=== PATIENT | male | born 1965 | race Caucasian/White ===

== ENCOUNTER 2018-03-11 16:26 | Emergency (ER) | payer OTHER ==
--- NOTE | 2018-03-11 17:16 | RAD REPORT ---
EXAM DESCRIPTION: CT - Abdomen Pelvis Wo Contrast - 03/11/2018 5:07 pm CLINICAL HISTORY: Abdominal pain lower abdominal pain COMPARISON: None TECHNIQUE: Computed axial tomography of the abdomen and pelvis was obtained. IV and oral contrast we re not requested. All CT scans are performed using dose optimization technique as appropriate and may include automated exposure control or mA/KV adjustment according to patient size. FINDINGS: The evaluation of solid organs, vessels and bowel is limited secondary to the lack of con trast administration. The liver, spleen, pancreas, adrenals and kidneys appear grossly normal. A diverticulum stems from the proximal sigmoid colon. Mild to moderate stranding is present within th e adjacent fat and thickening of the wall. Free air is not noted. An abscess is not seen. A small ascencion unt of ascites is present within the pelvis. . IMPRESSION: Mild to moderate sigmoid diverticulitis
[2018-03-11] MEDS ORDERED: KETOROLAC 30 MG/ML INJ ONE (18:13)
[2018-03-11] MEDS ORDERED: METRONIDAZOLE 500mg IVPB 500 MG/100 ML BAG IV ONE (18:13)
[2018-03-11] MEDS ORDERED: Levofloxacin500mg IV 500 MG/100 ML BAG IV ONE (18:13)
--- NOTE | 2018-03-11 18:15 | RAD REPORT ---
EXAM DESCRIPTION: US - Scrotum Testicles - 03/11/2018 6:06 pm CLINICAL HISTORY: Left-sided pain. COMPARISON: None. FINDINGS: The right testicle 4.8 x 3.2 x 2.6 cm. No intratesticular masses or evidence of testicular torsion. The left testicle 4.9 x 3.2 x 2.2 cm. No intratesticular masses or evidence of testicular torsion. Both epididymides are normal in size and appearance. Mild fluid is seen in both scrotal sacs. Small left-sided varicocele noted slightly increased with Valsalva maneuver. IMPRESSION: Small left-sided varicocele. No intratesticular mass or evidence of testicular torsion.
[2018-03-11 18:20] LABS: Absolute Lymphocytes (CBC) 1.4 K/uL (0.7-4.9); Absolute Monocytes 0.7 K/uL (0.1-1.3); Absolute Neutrophil 7.5 K/uL (1.8-8.0); Basophils % 0.2 % (0-1.3); Eosinophils % 1.8 % (0-4.4); Hematocrit 43.8 % (39.6-49.0); Lymphocytes % 13.8 % (15.3-44.8); MCH 32.3 pg (27.0-35.0); MCV 92.9 fL (80-100); MPV 8.2 fL (7.6-11.3); Monocytes % 7.3 % (3.3-12.3); RBC Red Blood Cell Count 4.72 M/uL (4.33-5.43)
[2018-03-11 18:29] LABS: Urine Blood NEGATIVE (NEG); Urine Glucose NEGATIVE (NEG); Urine Protein NEGATIVE (NEG); Urine Specific Gravity 1.005 (1.005-1.030); Urine pH 5.5 (5.0-7.0)
[2018-03-11 18:29] LABS: Bicarbonate 26 mEq/L (21-31); Glucose Level 127 mg/dL (65-120); Potassium 3.8 mEq/L (3.6-5.0); Sodium Level 133 mEq/L (135-145)
[2018-03-11 18:35] LABS: ALT/SGPT 21 IU/L (10-60); AST/SGOT 19 IU/L (10-42); Albumin 4.4 g/dL (3.2-5.5); Alkaline Phosphatase 83 IU/L (42-121); BUN Blood Urea Nitrogen 7 mg/dL (6-20); Bilirubin Direct 0.1 mg/dL (0-0.2); Bilirubin Total 0.8 mg/dL (0.3-1.2)
[2018-03-11 18:39] LABS: Urine Bacteria NONE SEEN /HPF (NONE SEEN); Urine RBC NONE SEEN /HPF (NONE SEEN)
[2018-03-11 18:40] LABS: Urine Culture Reflex Order NOT NEEDED
--- NOTE | 2018-03-11 18:40 | EDPHYS ---
Physician Documentation [facility] Name: Conner Bunn Age: 53 yrs Sex: Male : 1965 Arrival Date: 03/11/2018 Time: 16:29 Bed 14 Private MD: Markel Sommers ED Physician Pedro Spencer HPI: 03/11 18:31 This 53 yrs old Male presents to ER via Ambulatory with complaints of wa Testicular Pain. 18:31 The patient presents with scrotal pain, of the left side, tenderness, that is moderate, wa of the left inguinal area. Onset: The symptoms/episode began/occurred 3 day(s) ago. Modifying factors: The symptoms are alleviated by nothing, the symptoms are aggravated by nothing. Associated signs and symptoms: Pertinent positives: abdominal pain, Pertinent negatives: diarrhea, dysuria, fever. Severity of symptoms: At their worst the symptoms were moderate, in the emergency department the symptoms are unchanged. The patient has not experienced similar symptoms in the past. The patient has not recently seen a physician. Historical: - Allergies: 16:34 PENICILLINS; aa5 16:34 karamycin; aa5 - PMHx: 16:34 Diabetes - NIDDM; Hyperlipidemia; Hypertension; aa5 - Immunization history:: Adult Immunizations unknown. - Social history:: Smoking status: Patient/guardian denies using tobacco. - Family history:: not pertinent. - Hospitalizations: : No recent hospitalization is reported. ROS: 18:32 Constitutional: Negative for fever, chills, and weight loss, Eyes: Negative for injury, wa pain, redness, and discharge, ENT: Negative for injury, pain, and discharge, Neck: Negative for injury, pain, and swelling, Cardiovascular: Negative for chest pain, palpitations, and edema, Respiratory: Negative for shortness of breath, cough, wheezing, and pleuritic chest pain, Back: Negative for injury and pain, MS/Extremity: Negative for injury and deformity, Skin: Negative for injury, rash, and discoloration, Neuro: Negative for headache, weakness, numbness, tingling, and seizure. 18:32 Abdomen/GI: Positive for abdominal pain, of the left lower quadrant. 18:32 : Positive for testicular pain of the left. 18:32 All other systems are negative. Exam: 18:32 Constitutional: This is a well developed, well nourished patient who is awake, alert, wa and in no acute distress. Head/Face: Normocephalic, atraumatic. Eyes: Pupils equal round and reactive to light, extra-ocular motions intact. Lids and lashes normal. Conjunctiva and sclera are non-icteric and not injected. Cornea within normal limits. Periorbital areas with no swelling, redness, or edema. ENT: Nares patent. No nasal discharge, no septal abnormalities noted. Tympanic membranes are normal and external auditory canals are clear. Oropharynx with no redness, swelling, or masses, exudates, or evidence of obstruction, uvula midline. Mucous membranes moist. Neck: Trachea midline, no thyromegaly or masses palpated, and no cervical lymphadenopathy. Supple, full range of motion without nuchal rigidity, or vertebral point tenderness. No Meningismus. Chest/axilla: Normal chest wall appearance and motion. Nontender with no deformity. No lesions are appreciated. Cardiovascular: Regular rate and rhythm with a normal S1 and S2. No gallops, murmurs, or rubs. Normal PMI, no JVD. No pulse deficits. Respiratory: Lungs have equal breath sounds bilaterally, clear to auscultation and percussion. No rales, rhonchi or wheezes noted. No increased work of breathing, no retractions or nasal flaring. Back: No spinal tenderness. No costovertebral tenderness. Full range of motion. Skin: Warm, dry with normal turgor. Normal color with no rashes, no lesions, and no evidence of cellulitis. MS/ Extremity: Pulses equal, no cyanosis. Neurovascular intact. Full, normal range of motion. Neuro: Awake and alert, GCS 15, oriented to person, place, time, and situation. Cranial nerves II-XII grossly intact. Motor strength 5/5 in all extremities. Sensory grossly intact. Cerebellar exam normal. Normal gait. Psych: Awake, alert, with orientation to person, place and time. Behavior, mood, and affect are within normal limits. 18:32 Abdomen/GI: Inspection: abdomen appears normal, Bowel sounds: normal, in all quadrants, Palpation: soft, in all quadrants, mild abdominal tenderness, in the left lower quadrant. 18:32 : CVA tenderness, is absent, Male external genitalia: normal, non-tender testicle. no swelling. no redness. nml cremasteric reflex bilaterally. Vital Signs: 16:34 BP 155 / 84; Pulse 94; Resp 16 S; Temp 98.3(TE); Pulse Ox 99% on R/A; aa5 19:45 BP 142 / 84; Pulse 76; Resp 16; Temp 98.0(O); Pulse Ox 97% on R/A; Pain 0/10; bs1 MDM: 16:[address] 18:35 Differential diagnosis: nonspecific abdominal pain, UTI, prostatitis, urethritis. Data ct reviewed: vital signs, nurses notes, lab test result(s), radiologic studies. Test interpretation: by ED physician or midlevel provider: scrotal US: mild varicocle. CT abd/pelvis: mild to moderate diverticulitis. . Response to treatment: the patient's symptoms have mildly improved after treatment. Special discussion: abx given in ED. will d/c with abx. f/u with GI. 18:44 Test interpretation: by ED physician or midlevel provider: labs noted wnl. ct 03/11 16:48 Order name: Basic Metabolic Panel; Complete Time: 18:43 ct 03/11 16:48 Order name: CBC with Diff; Complete Time: 18:43 ct 03/11 16:48 Order name: Hepatic Function; Complete Time: 18:43 ct 03/11 16:48 Order name: Urine Microscopic Only; Complete Time: 18:43 ct 03/11 16:49 Order name: US Scrotum Testicles; Complete Time: 18:22 ct 03/11 18:26 Order name: Urine Dipstick--Ancillary (enter results) 03/11 16:48 Order name: IV Saline Lock; Complete Time: 18:15 ct 03/11 16:48 Order name: Labs collected and sent; Complete Time: 19:34 ct 03/11 16:50 Order name: CT Abd/Pelvis - Without Cont; Complete Time: 18:10 ct Administered Medications: 18:30 Drug: Flagyl 500 mg Volume: 100 ml; Route: IVPB; Rate: 200 ml/hr; Infused Over: 30 ph mins; Site: right forearm; 19:00 Follow up: Response: No adverse reaction; IV Status: Completed infusion ph 19:34 Follow up: IV Status: Completed infusion bs1 18:31 Drug: TORadol 30 mg Route: IVP; Site: right forearm; ph 19:34 Follow up: Response: No adverse reaction bs1 18:36 Drug: LevaQUIN 500 mg Volume: 100 ml; Route: IVPB; Infused Over: 60 mins; Site: right ph forearm; 19:35 Follow up: IV Status: Completed infusion bs1 Disposition: 03/11/18 18:39 Discharged to Home. Impression: acute diverticulitis. - Condition is Stable. - Discharge Instructions: Diverticulitis, Diverticulitis, [id number]. - Prescriptions for Flagyl 500 mg Oral Tablet - take 1 tablet by ORAL route every 12 hours for 7 days; 14 tablet. Ibuprofen 600 mg Oral Tablet - take 1 tablet by ORAL route every 6 hours As needed take with food; 30 tablet. Zofran 4 mg Oral Tablet - take 1 tablet by ORAL route every 12 hours As needed; 20 tablet. Cipro 500 mg Oral Tablet - take 1 tablet by ORAL route every 12 hours for 7 days; 14 tablet. - Medication Reconciliation Form, Thank You Letter, Antibiotic Education, Prescription Opioid Use form. - Follow up: Pedro Ma MD; When: 2 - 3 days; Reason: Recheck today's complaints. - Problem is new. - Symptoms have improved. Signatures: Dispatcher [employer] EDMS Heike Marino RN RN 5 Jayde Mckeon RN RN [facility] ct Michelle Sheppard RN RN bs1 Corrections: (The following items were deleted from the chart) 19:47 18:39 03/11/2018 18:39 Discharged to Home. Impression: acute diverticulitis. Condition bs1 is Stable. Discharge Instructions: Diverticulitis, [id number], Diverticulitis. Forms are Medication Reconciliation Form, Thank You Letter, Antibiotic Education, Prescription Opioid Use. Follow up: Pedro Ma; When: 2 - 3 days; Reason: Recheck today's complaints. Problem is new. Symptoms have improved. juliane
--- NOTE | 2018-03-11 18:40 | ER ---
Nurse's Notes [facility] Name: Conner Bunn Age: 53 yrs Sex: Male : 1965 Arrival Date: 03/11/2018 Time: 16:29 Bed 14 Private MD: Markel Sommers Diagnosis: acute diverticulitis Presentation: 03/11 16:30 Presenting complaint: Patient states: left testicular pain x 3 days ago. Transition of aa5 care: patient was not received from another setting of care. Onset of symptoms was March 2018. Initial Sepsis Screen: Does the patient meet any 2 criteria? No. Patient's initial sepsis screen is negative. Does the patient have a suspected source of infection? No. Patient's initial sepsis screen is negative. Care prior to arrival: None. 16:30 Method Of Arrival: Ambulatory aa5 16:30 Acuity: WEI 3 aa5 Historical: - Allergies: 16:34 PENICILLINS; aa5 16:34 karamycin; aa5 - PMHx: 16:34 Diabetes - NIDDM; Hyperlipidemia; Hypertension; aa5 - Immunization history:: Adult Immunizations unknown. - Social history:: Smoking status: Patient/guardian denies using tobacco. - Family history:: not pertinent. - Hospitalizations: : No recent hospitalization is reported. Screenin:57 Abuse screen: Denies threats or abuse. Denies injuries from another. Nutritional ph screening: No deficits noted. Tuberculosis screening: No symptoms or risk factors identified. Fall Risk None identified. Assessment: 17:00 General: Appears in no apparent distress. comfortable, slender, well groomed, Behavior ph is calm, cooperative, appropriate for age, Denies fever, feeling ill. Pain: Complains of pain in left testicle. Neuro: Level of Consciousness is awake, alert, obeys commands, Oriented to person, place, time, situation. Cardiovascular: Capillary refill < 3 seconds Patient's skin is warm and dry. Respiratory: Airway is patent Respiratory effort is even, unlabored, Respiratory pattern is regular, symmetrical. GI: Reports diarrhea, Patient currently denies abdominal pain, nausea, vomiting. : Reports pain in left testicle, Denies burning with urination, inability to void. Derm: Skin is intact, is healthy with good turgor, Skin is pink, warm \T\ dry. Musculoskeletal: Circulation, motion, and sensation intact. Range of motion: intact in all extremities. 17:50 Reassessment: Patient appears in no apparent distress at this time. Patient and/or ph family updated on plan of care and expected duration. Pain level reassessed. Patient is alert, oriented x 3, equal unlabored respirations, skin warm/dry/pink. US at bedside. 19:07 Reassessment: Patient appears in no apparent distress at this time. Patient and/or ph family updated on plan of care and expected duration. Pain level reassessed. Patient is alert, oriented x 3, equal unlabored respirations, skin warm/dry/pink. Pt resting quietly, awaiting completion of IV antibiotics before discharge. 19:45 Reassessment: Patient appears in no apparent distress at this time. No changes from bs1 previously documented assessment. Patient and/or family updated on plan of care and expected duration. Pain level reassessed. Patient is alert, oriented x 3, equal unlabored respirations, skin warm/dry/pink. Patient finished IV levaquin, Dc papers given. No pain noted at this time. Vital Signs: 16:34 BP 155 / 84; Pulse 94; Resp 16 S; Temp 98.3(TE); Pulse Ox 99% on R/A; aa5 19:45 BP 142 / 84; Pulse 76; Resp 16; Temp 98.0(O); Pulse Ox 97% on R/A; Pain 0/10; bs1 ED Course: 16:29 Patient arrived in ED. as 16:30 Markel Sommers MD is Private Physician. as 16:30 Arm band placed on. aa5 16:33 Triage completed. aa5 16:38 Pedro Spencer MD is Attending Physician. wa 16:45 Jayde Mckeon, DAQUAN is Primary Nurse. ph 16:[address] vr 17:06 CT completed. Patient tolerated procedure well. Patient moved back from CT. nj 17:06 CT Abd/Pelvis - Without Cont In Process Unspecified. EDMS 17:57 Patient has correct armband on for positive identification. Placed in gown. Bed in low ph position. Call light in reach. Side rails up X 1. Pulse ox on. NIBP on. Warm blanket given. 18:02 Ultrasound completed. Patient tolerated well. sg3 18:06 US Scrotum Testicles In Process Unspecified. EDMS 18:13 Initial lab(s) drawn, by ky, sent to lab. Inserted saline lock: 22 gauge in right 5 forearm, using aseptic technique. Blood collected. 18:14 Basic Metabolic Panel Sent. [facility] 18:14 CBC with Diff [address]. [facility] 18:[address] [facility] 18:38 Pedro Ma MD is Referral Physician. pr 19:09 No provider procedures requiring assistance completed. ph 19:44 IV discontinued, bleeding controlled, No redness/swelling at site. Pressure dressing bs1 applied. Administered Medications: 18:30 Drug: Flagyl 500 mg Volume: 100 ml; Route: IVPB; Rate: 200 ml/hr; Infused Over: 30 ph mins; Site: right forearm; 19:00 Follow up: Response: No adverse reaction; IV Status: Completed infusion ph 19:34 Follow up: IV Status: Completed infusion bs1 18:31 Drug: TORadol 30 mg Route: IVP; Site: right forearm; ph 19:34 Follow up: Response: No adverse reaction bs1 18:36 Drug: LevaQUIN 500 mg Volume: 100 ml; Route: IVPB; Infused Over: 60 mins; Site: right ph forearm; 19:35 Follow up: IV Status: Completed infusion bs1 Outcome: 18:39 Discharge ordered by . pr 19:43 Discharged to home ambulatory. bs1 19:43 Condition: stable 19:43 Discharge instructions given to patient, Instructed on discharge instructions, follow up and referral plans. medication usage, Demonstrated understanding of instructions, follow-up care, medications, Prescriptions given X 4. 19:47 Patient left the ED. bs1 Signatures: Dispatcher [employer] Lorraine Melendrez Audri, RN RN 5 Bina Rodriguez Patricia, RN RN Jose, Amy Webster [facility] Pedro Spencer MD MD wa Godinez, Sarah sg3 Salazar, Brittany, RN RN bs1
== END 2018-03-11 19:47 | disposition home or self-care (01) ==
LOC: ER 16:26
DX: K57.92 Diverticulitis of intestine, part unspecified, without perforation or abscess without bleeding (principal); I10 Essential (primary) hypertension; Z88.0 Allergy status to penicillin
CPT/HCPCS: 36415; 74176; 76870; 80048; 80076; 81003; 81015; 85025; 96365; 96368; 96375; 99284

== ENCOUNTER 2021-12-13 12:28 | Emergency (ER) | payer OTHER ==
--- OUTSIDE RECORDS SUMMARY | 2021-12-13 12:33 | XMS REPORT | Continuity of Care Document ---
:1965 Author Organization [facility] t Address [address] [place] [address] Care Team Providers Name Role Phone Unavailable Unavailable Unavailable Problems Condition Condition Condition Status Onset Resolution Last Treating Co mments Source Name Details Category Date Date Treatment Clinician Date CHEST PAIN Diagnosis Active 2016-08-10 Memoria 08-06 07:48:00 l CHEST 00:00: Luis PAIN 00 Active 08/06/2016 [place] Cataract Problem Resolve 2021-11-28 Me moria (disorder) d 01:30:05 l Cataract Jeison n (disorder) [facility] [place] Tear of Problem Resolve 2021-11-28 Mem oria meniscus d 01:30:05 l of knee Tear of Jeison n (disorder) meniscus of knee (disorder) Resolved Problem 11/28/2021 [facility] [place] Benign Problem Active 2021-11-28 Memor ia prostatic 01:30:05 l hypertroph Benign Herm kena without prostatic outflow hypertroph obstructio without n outflow (disorder) obstructio n (disorder) Active Problem 11/28/2021 [facility] Diverticul Problem Active 2021-11-28 M emoria itis 01:30:05 l (disorder) Jeison n Diverticul itis (disorder) Active Problem 11/28/2021 [facility] History of Problem Active 2021-11-28 M emoria - 01:30:05 l Malignant History Herm kena melanoma of - (context-d Malignant ependent melanoma category) (context-d ependent category) Active Problem 11/28/2021 [facility] Hearing Problem Active 2021-11-28 Sebas luis loss 01:30:05 l (finding) Hearing Herm kena loss (finding) Active Problem 11/28/2021 [facility] History of Problem Active 2021-11-28 M emoria malignant 01:30:05 l lymphoma History Aaliyah nn (situation of ) malignant lymphoma (situation ) Active Problem 11/28/2021 [facility] Hyperlipid Problem Active 2021-11-28 M emoria emia 01:30:05 l (disorder) Jeison n Hyperlipid emia (disorder) Active Problem 11/28/2021 [facility] Hypertensi Problem Active 2021-11-28 M emoria ve 01:30:05 l disorder, Luis systemic Hypertensi arterial ve (disorder) disorder, systemic arterial (disorder) Active Problem 11/28/2021 [facility], [place] Overweight Problem Active 2020-10-21 M emoria in 00:49:49 l adulthood Luis with body Overweight mass index in of 25 or adulthood more but with body less than mass index 30 of 25 or (finding) more but less than 30 (finding) Active Problem 10/21/2020 [facility] Diabetes Problem Active 2021-11-28 Mem oria mellitus 01:30:05 l type 2 Diabetes Jeison n (disorder) mellitus type 2 (disorder) Active Problem 11/28/2021 [facility] Finding of Problem Active 2020-02-05 M emoria body mass 02:50:50 l index Finding [place] (finding) of body mass index (finding) Active Problem 02/05/2020 [facility] Erectile Problem Active 2021-11-28 Mem oria dysfunctio 01:30:05 l n Erectile Jeison n dysfunctio n Active Problem 11/28/2021 [facility] Fatigue Problem Active 2021-11-28 Sebas luis (finding) 01:30:05 l Fatigue Luis (finding) Active Problem 11/28/2021 [facility] History of Problem Active 2021-11-28 M emoria SARS-CoV-2 01:30:05 l History [place] of SARS-CoV-2 Active Problem 11/28/2021 [facility] Overweight Problem Active 2021-11-28 M emoria (finding) 01:30:05 l [place] Overweight (finding) Active Problem 11/28/2021 [facility] Diabetic Problem Active 2021-11-28 Mem oria retinopath 01:30:05 l y Diabetic Jeison n (disorder) retinopath y (disorder) Active Problem 11/28/2021 [facility] Disease Problem Active 2020-10-21 Sebas luis caused by 00:49:49 l 2019-nCoV Disease Herm kena caused by 2018-nCoV Active Problem 10/21/2020 [facility] Type 2 Problem 2021-11-28 2021-11-28 M emoria diabetes 11-25 01:30:05 01:30:05 l mellitus Type 2 22:07: Jeison peres without diabetes 00 complicati mellitus ons without complicati ons 11/25/2021 11/28/2021 [facility] Enlarged Problem 2021-11-28 2021-11-28 Memoria prostate 11-25 01:30:05 01:30:05 l without Enlarged 22:07: Aaliyah nn lower prostate 00 urinary without tract lower symptoms urinary tract symptoms 11/28/2021 [facility] Essential Problem 2021-11-28 2021-11-28 Memoria (primary) 11-25 01:30:05 01:30:05 l hypertensi 22:07: Jeison perse on Essential 00 (primary) hypertensi on 11/25/2021 11/28/2021 [facility] Hyperlipid Problem 2021-11-28 2021-11-28 Memoria emia, 11-25 01:30:05 01:30:05 l unspecifie 22:07: Jeison peres d Hyperlipid 00 emia, unspecifie d 11/25/2021 11/28/2021 [facility] Type 2 Problem 2021-11-28 2021-11-28 M emoria diabetes 11-25 01:30:05 01:30:05 l mellitus Type 2 22:06: Jeison peres with diabetes 00 unspecifie mellitus d diabetic with 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 Clinician (SIG) Name Name pneumococca No 0.5 mL, Mem oria l capsular 1-18 Route: IM, l polysacchar 22:19: ONCE, Aaliyah nn alvaro type 1 00 (PNEUMOVAX vaccine / 23), pneumococca Start l capsular date: polysacchar 11/25/21 alvaro type 16:19:00 10A vaccine [employer], Stop / date: pneumococca 11/25/21 l capsular 16:19:00 polysacchar [employer] alvaro type 11A vaccine / pneumococca l capsular polysacchar alvaro type 12F vaccine / pneumococca l capsular polysacchar pravastatin Yes = 1 tab, Me moria 40 mg oral 1-18 PO, l tablet 22:16: Bedtime, # Aaliyah nn 00 90 tab, 3 Refill(s), Pharmacy: [facility], 167.64, cm, 06/13/21 15:05:00 CDT, Height, 76.477, kg, 06/13/21 15:05:00 CDT, Weight tamsulosin Yes 0.4 mg = 1 M emoria 0.4 mg oral 1-18 cap, PO, l capsule 22:16: BID, # 180 Herm kena 00 cap, 3 Refill(s), Pharmacy: [facility], 167.64, cm, 06/13/21 15:05:00 CDT, Height, 76.477, kg, 06/13/21 15:05:00 CDT, Weight lisinopril Yes = 1 tab, Mem oria 10 mg oral 1-18 PO, Daily, l tablet 22:15: # 90 tab, Jeison n 00 3 Refill(s), Pharmacy: [facility], 167.64, cm, 06/13/21 15:05:00 CDT, Height, 76.477, kg, 06/13/21 15:05:00 CDT, Weight Metformin 2021-0 Yes = 1 tab, Sebas luis hydrochlori 1-18 PO, l de 500 MG 22:15: BID-Before He rmann Oral Tablet 00 Meals, # 180 tab, 3 Refill(s), Pharmacy: [facility], 167.64, cm, 06/13/21 15:05:00 CDT, Height, 76.477, kg, 06/13/21 15:05:00 CDT, Weight pravastatin No = 1 tab, Me moria 40 mg oral 1-06 PO, l tablet 19:19: Bedtime, # Aaliyah nn 00 90 tab, 3 Refill(s), Pharmacy: [facility], 167.64, cm, 06/13/21 15:05:00 CDT, Height, 76.477, kg, 06/13/21 15:05:00 CDT, Weight lisinopril No = 1 tab, Mem oria 10 mg oral 1-06 PO, Daily, l tablet 19:19: # 90 tab, Jeison n 00 3 Refill(s), Pharmacy: [facility], 167.64, cm, 06/13/21 15:05:00 CDT, Height, 76.477, kg, 06/13/21 15:05:00 CDT, Weight FreeStyle 2020-11 Yes 1 ea, Memoria Cinthia 0-22 MISC, l [place] 21:46: ONCE, Last Aaliyah HBA1c: 6.9, # 1 ea, Not insulin dependent, Does not use insulin pump, Last DM eval date 11/28/20, 0 Refill(s), Pharmacy: [facility], 167.64, cm, 06/13/21 15:05:00 CDT, Height, 76.477, kg, 06/13/21 15:05:00 CDT... FreeStyle 2020-11 Yes 3 ea, Memoria Cinthia 0-22 MISC, l Sensor 21:46: Q14D, Last Aaliyah HBA1c: 6.9, # 3 ea, Not insulin dependent, Does not use insulin pump, Last DM eval date 11/28/20, 1 Refill(s), Pharmacy: [facility], 167.64, cm, 06/13/21 15:05:00 CDT, Height, 76.477, kg, 06/13/21 15:05:00 CDT... lisinopril Yes = 1 tab, Mem oria 10 mg oral 7-16 PO, Daily, l tablet 20:40: # 90 tab, Jeison n 00 1 Refill(s), Pharmacy: [facility], 167.64, cm, 05/23/21 15:10:00 CDT, Height, 77.727, kg, 05/23/21 15:10:00 CDT, Weight tamsulosin Yes 0.4 mg = 1 M emoria 0.4 mg oral 7-16 cap, PO, l capsule 20:40: BID, # 60 Aaliyah nn 00 cap, 0 Refill(s), Pharmacy: [facility], 167.64, cm, 05/23/21 15:10:00 CDT, Height, 77.727, kg, 05/23/21 15:10:00 CDT, Weight Metformin Yes = 1 tab, Sebas luis hydrochlori 7-16 PO, l de 500 MG 20:40: BID-Before He rmann Oral Tablet 00 Meals, # 180 tab, 1 Refill(s), Pharmacy: [facility], 167.64, cm, 05/23/21 15:10:00 CDT, Height, 77.727, kg, 05/23/21 15:10:00 CDT, Weight pravastatin Yes = 1 tab, Me moria 40 mg oral 7-16 PO, l tablet 20:40: Bedtime, # Aaliyha nn 00 90 tab, 1 Refill(s), Pharmacy: [facility], 167.64, cm, 05/23/21 15:10:00 CDT, Height, 77.727, kg, 05/23/21 15:10:00 CDT, Weight lisinopril No = 1 tab, Mem oria 10 mg oral 7-16 PO, Daily, l tablet 20:37: # 90 tab, Jeison n 00 1 Refill(s), Pharmacy: [id number], 167.64, cm, 05/23/21 15:10:00 CDT, Height, 77.727, kg, 05/23/21 15:10:00 CDT, Weight Metformin 0 No = 1 tab, Sebas luis hydrochlori 7-16 PO, l de 500 MG 20:37: BID-Before He rmann Oral Tablet 00 Meals, # 180 tab, 1 Refill(s), Pharmacy: [facility] #[id number], 167.64, cm, 05/23/21 15:10:00 CDT, Height, 77.727, kg, 05/23/21 15:10:00 CDT, Weight pravastatin 0 No = 1 tab, Me moria 40 mg oral 7-16 PO, l tablet 20:37: Bedtime, # Aaliyah nn 00 90 tab, 1 Refill(s), Pharmacy: [facility] #[id number], 167.64, cm, 05/23/21 15:10:00 CDT, Height, 77.727, kg, 05/23/21 15:10:00 CDT, Weight tamsulosin 0 No 0.4 mg = 1 M emoria 0.4 mg oral 7-16 cap, PO, l capsule 20:37: BID, # 60 Aaliyah nn 00 cap, 0 Refill(s), Pharmacy: [facility] #[id number], 167.64, cm, 05/23/21 15:10:00 CDT, Height, 77.727, kg, 05/23/21 15:10:00 CDT, Weight FreeStyle 2020-0 Yes 1 ea, Memoria Cinthia - MISC, l [place] 16:09: ONCE, Last Aaliyah HBA1c: 6.9, # 1 ea, Not insulin dependent, Does not use insulin pump, Last DM eval date 11/28/20, 0 Refill(s), Pharmacy: [email or web address], 167.64, cm, 11/28/20 9:09:00 [employer], Height, 76.818, kg, 11/28/20 9:09:00 [employer],... FreeStyle 2020-0 Yes 3 ea, Memoria Cinthia - MISC, l Sensor 16:09: Q14D, Last Aaliyah HBA1c: 6.9, # 3 ea, Not insulin dependent, Does not use insulin pump, Last DM eval date 11/28/20, 1 Refill(s), Pharmacy: [email or web address], 167.64, cm, 11/28/20 9:09:00 [employer], Height, 76.818, kg, 11/28/20 9:09:00 [employer],... lisinopril Yes = 1 tab, Mem oria 10 mg oral 1-21 PO, Daily, l tablet 15:40: # 90 tab, Jeison n 00 1 Refill(s), Pharmacy: [facility], 167.64, cm, 11/28/20 9:09:00 [employer], Height, 76.818, kg, 11/28/20 9:09:00 [employer], Weight Metformin Yes = 1 tab, Sebas luis hydrochlori 1-21 PO, l de 500 MG 15:40: BID-Before He rmann Oral Tablet 00 Meals, # 180 tab, 1 Refill(s), Pharmacy: [facility], 167.64, cm, 11/28/20 9:09:00 [employer], Height, 76.818, kg, 11/28/20 9:09:00 [employer], Weight pravastatin Yes = 1 tab, Me moria 40 mg oral -21 PO, l tablet 15:40: Bedtime, # Aaliyah nn 00 90 tab, 1 Refill(s), Pharmacy: [facility], 167.64, cm, 11/28/20 9:09:00 [employer], Height, 76.818, kg, 11/28/20 9:09:00 [employer], Weight tamsulosin Yes 0.4 mg = 1 M emoria 0.4 mg oral -21 cap, PO, l capsule 15:11: BID, 0 [place] 00 Refill(s) levalbutero 2019-11 Yes 0.63 mg = M emoria l 0.63 mg/3 2-10 3 mL, NEB, l mL 19:20: Q6H, PRN [place] inhalation 00 as need solution for shortness of breath, # 120 ea, 0 Refill(s), Pharmacy: [facility][id number], 167.64, cm, 03/07/20 8:55:00 CDT, Height, 72.182, kg, 03/07/20 8:55:00 CDT, Weight Codeine 2019-11 Yes 5 mL, PO, Memor ia Phosphate 2 2-10 Q4H, PRN l MG/ML / 19:20: cough, may Herm kena Guaifenesin 00 cause 20 MG/ML sleepiness Oral , X 8 day, Solution # 240 mL, [Cheratussi 0 n] Refill(s), Pharmacy: [facility] #[id number], 167.64, cm, 03/07/20 8:55:00 CDT, Height, 72.182, kg, 03/07/20 8:55:00 CDT, Weight lisinopril 2019-11 Yes 10 mg = 1 Me moria 10 mg oral 2-07 tab, PO, l tablet 21:14: Daily, # Luis 00 30 tab, 0 Refill(s), Pharmacy: [facility] #[id number], this replaces the Byst[facility], 167.64, cm, 03/07/20 8:55:00 CDT, Height, 72.182, kg, 03/07/20 8:55:00 CDT, Weight pravastatin 2019-11 Yes 40 mg = 1 M emoria 40 mg oral 2-07 tab, PO, l tablet 21:14: Bedtime, # Aaliyah nn 00 30 tab, 0 Refill(s), Pharmacy: [facility] #[id number], 167.64, cm, 03/07/20 8:55:00 CDT, Height, 72.182, kg, 03/07/20 8:55:00 CDT, Weight Metformin 2019-11 Yes 500 mg = 1 Me moria hydrochlori 2-07 tab, PO, l de 500 MG 21:14: BID-Before He rmann Oral Tablet 00 Meals, # 60 tab, 0 Refill(s), Pharmacy: [facility] #[id number], 167.64, cm, 03/07/20 8:55:00 CDT, Height, 72.182, kg, 03/07/20 8:55:00 CDT, Weight {6 2019-11 Yes See Memoria (Azithromyc 2-07 Instructio l in 250 MG 21:14: ns, Take 2 He rmann Oral Tablet 00 tablets by [Zithromax] mouth the ) } Pack first day [Z-PAKS] then 1 tablet by mouth days 2-5., X 5 day, # 6 tab, 0 Refill(s), Pharmacy: [facility] #[id number], 167.64, cm, 03/07/20 8:55:00 CDT, Height, 72.182, kg, 03/07/20 8:55:00 CDT, Weight benzonatate 2019-1 Yes 100 mg = 1 Memoria 100 mg oral 2-07 cap, PO, l capsule 21:14: TID, do not crush or chew, X 10 day, # 30 cap, 0 Refill(s), Pharmacy: [facility] #[id number], 167.64, cm, 03/07/20 8:55:00 CDT, Height, 72.182, kg, 03/07/20 8:55:00 CDT, Weight Dexcom G6 2019-0 Yes 1 ea, Memoria Transmitter 6-18 MISC, l Kit 19:08: ONCE, Last HBA1c: 6.9, # 3 ea, Not insulin dependent, Does not use insulin pump, Last DM eval date 03/07/20, 1 Refill(s), Pharmacy: [facility], 167.64, cm, 03/07/20 8:55:00 CDT, Height, 72.182, kg, 03/07/20 8:55:00 CDT,... Dexcom G6 2019-0 Yes 1 ea, Memoria Sensor Kit 6-18 MISC, l 19:08: ONCE, Last HBA1c: 6.9, # 9 ea, Not insulin dependent, Does not use insulin pump, Last DM eval date 03/07/20, 1 Refill(s), Pharmacy: [email or web address], 167.64, cm, 03/07/20 8:55:00 CDT, Height, 72.182, kg, 03/07/20 8:55:00 CDT,... pravastatin 2020-0 Yes 40 mg = 1 M emoria 40 mg oral 5-05 tab, PO, l tablet 14:00: Bedtime, # Aaliyah nn 00 90 tab, 1 Refill(s), Pharmacy: [facility] Dexcom G6 2020-0 Yes 1 ea, Memoria Training Manager 4-30 MISC, l Kit 14:22: ONCE, PRN Refill "Once a Year", Last HBA1c: due, # 3 ea, Not insulin dependent, Does not use insulin pump, Last DM eval date 02/26/20, 0 Refill(s), Pharmacy: [facility] #[id number] Dexcom G6 2020-0 Yes 1 ea, Memoria Sensor Kit 4-30 MISC, l 14:22: ONCE, PRN [place] 00 Refill "Every 30 Days" Use as directed, Last HBA1c: due, # 3 ea, Not insulin dependent, Does not use insulin pump, Last DM eval date 02/26/20, 0 Refill(s), Pharmacy: [facility] #[id number] Dexcom G6 2020-0 Yes 1 ea, Memoria Transmitter 4-30 MISC, l Kit 14:22: ONCE, PRN Luis 00 Refill "Every 3 Months", Last HBA1c: due, # 3 ea, Not insulin dependent, Does not use insulin pump, Last DM eval date 02/26/20, 0 Refill(s), Pharmacy: [facility] #[id number] Metformin 2020-0 Yes 500 mg = 1 Me moria hydrochlori 4-30 tab, PO, l de 500 MG 14:22: BID-Before He rmann Oral Tablet 00 Meals, # 180 tab, 0 Refill(s), Pharmacy: [facility] #[id number] nebivolol 2020-0 Yes 10 mg = 1 Mem oria 10 MG Oral 4-30 tab, PO, l Tablet 14:22: Daily, # [place] [Bystolic] 00 90 tab, 0 Refill(s), Pharmacy: [facility] #[id number] Tamsulosin 2020-0 Yes 0.4 mg = 1 M emoria hydrochlori 4-30 cap, PO, l de 0.4 MG 14:22: Daily, # Herm kena Oral 00 90 cap, 0 Capsule Refill(s), [Flomax] Pharmacy: [facility] #[id number] Dexcom G6 2020-0 Yes 1 ea, Memoria Transmitter 3-26 MISC, l Kit 14:47: ONCE, PRN [place] 00 Refill "Every 3 Months", Last HBA1c: due, # 1 ea, Not insulin dependent, Does not use insulin pump, Last DM eval date 02/26/20, 0 Refill(s), Pharmacy: [facility] #[id number] Dexcom G6 2020-0 Yes 1 ea, Memoria Sensor Kit 3- MISC, l 14:47: ONCE, PRN [place] 00 Refill "Every 30 Days" Use as directed, Last HBA1c: due, # 1 ea, Not insulin dependent, Does not use insulin pump, Last DM eval date 02/26/20, 0 Refill(s), Pharmacy: [facility] #[id number] Dexcom G6 Yes 1 ea, Memoria Training Manager 01-31 MISC, l Kit 14:47: ONCE, PRN Luis 00 Refill "Once a Year", Last HBA1c: due, # 1 ea, Not insulin dependent, Does not use insulin pump, Last DM eval date 02/26/20, 0 Refill(s), Pharmacy: [facility] #[id number] Bromphenira Yes 5 mL, PO, M emoria mine 6-10 Q4H, PRN l Maleate 0.4 20:17: cough, X 8 Luis MG/ML / 00 day, # 240 Dextrometho mL, 0 rphan Refill(s), Hydrobromid Pharmacy: e 2 MG/ML / [facility] #[id number] rine Hydrochlori de 6 MG/ML Oral Solution [Bromfed DM] {6 Yes See Memoria (Azithromyc 6-10 Instructio l in 250 MG 20:17: ns, Take 2 He rmann Oral Tablet 00 tablets by [Zithromax] mouth the ) } Pack first day [Z-PAKS] then 1 tablet by mouth days 2-5., X 5 day, # 6 tab, 0 Refill(s), Pharmacy: [facility] #[id number] Lovastatin 2019- Yes PO, 0 Memori a 6-10 Refill(s) l 20:05: Luis 00 Flomax 2015-11 No Notes: Memoria 0- (Same As: l 14:00: Flomax) Luis "Do Not Crush" Bystolic 2015-11 No Notes: Memoria 0-01 (same as: l 14:00: Bystolic) [place] 00 Metformin Yes 500 mg = 1 Me moria hydrochlori 9-30 tab, PO, l de 500 MG 17:10: BID-Before He rmann Oral Tablet 00 Meals, # 60 tab, 0 Refill(s) pantoprazol Yes 40 mg = 1 M emoria e 40 MG 9-30 tab, PO, l Enteric 17:10: Daily, # Jeison n Coated 00 30 tab, 0 Tablet Refill(s) [Protonix] Simvastatin Yes 20 mg = 1 M emoria 20 MG Oral 9-30 tab, PO, l Tablet 16:25: Bedtime, # Aaliyah nn [Zocor] 00 90 tab, 1 Refill(s) Protonix No Notes: Memoria -30 Tablet l 14:00: should not Luis 00 be chewed or crushed. (Same as: Protonix) Aspirin 81 No Notes: Do Me moria MG Enteric 08-07 not crush l Coated 14:00: or chew. Luis Tablet 00 (Same As: Ecotrin) ibuprofen Yes 400 mg = 2 Me moria 200 mg oral -29 tab, PO, l tablet 22:49: Daily, PRN Aaliyah nn 00 Fever, # 120 tab, 0 Refill(s) nebivolol Yes 10 mg = 1 Mem oria 10 MG Oral 29 tab, PO, l Tablet 22:49: Daily, # Luis [Bystolic] 00 90 tab, 1 Refill(s) Tamsulosin Yes 0.4 mg = 1 M emoria hydrochlori 29 cap, PO, l de 0.4 MG 22:49: Daily, # Herm kena Oral 00 90 cap, 0 Capsule Refill(s) [Flomax] Zofran No Notes: Memoria 08-06 (Same as: l 21:40: Zofran) Luis 00 MEDICATION WASTE Product Size: 4 mg Product Wasted: ___ mg Phenergan No Notes: Do Mem oria 08-06 not give l 21:40: IV push. [place] 00 (Same as: Phenergan) Acetaminoph No Notes: Sebas luis en 325 MG / 08-06 (Same as: l Hydrocodone 21:40: Steele Aaliyah nn Bitartrate 00 325/5) Do 5 MG Oral not exceed Tablet 4gm/day of [Steele acetaminop 5/325] hen. Morphine No Notes: Memoria 08-06 (Same l 21:40: as:MORPhin e Sulfate) Labetalol No Notes: Memori a 08-06 (Same as: l 21:40: Normodyne, Trandate) Push over 2 minutes Give bolus over 2-3 minutes. Insulin, No Notes: Memoria Aspart, 08-06 Roll in l Human 21:39: palms of hands gently; Do not shake vigorously . (Same as: NovoLOG) "single patient use only" WASTE: F/P - Black; E - Municipal Trash Bin Stable for 28 days at room temperatur e. Expires in days from ____Date Dextrose No 12.5 gm, Memor ia 50% Syringe 08-06 25 mL, l 21:39: Route: IVP, Drug Form: INJ, Dosing Weight 75, kg, PRN, PRN Blood Glucose Results, Start date: 08/06/16 16:39:00 CDT, Duration: 30 day, Stop date: 09/05/16 16:38:00 CDT Glucagon No 1 mg, Memoria 08-06 Route: IM, l 21:39: Drug form: PDR/INJ, PRN, Dosing Weight 75, kg, PRN Blood Glucose Results, Start date: 08/06/16 16:39:00 CDT, Duration: 30 day, Stop date: 09/05/16 16:38:00 CDT Nitroglycer No Notes: Sebas luis in 08-06 (Same l 16:49: as:Nitroqu ick, Nitrostat) "Do Not Crush" Sublingual tablet Aspirin No Notes: Memoria 08-06 Take with l 15:01: food. Saline No Notes: Memoria Flush 0.9% 08-06 (Same as: l 15:01: BD Posiflush) Immunizations Ordered Immunization Filled Immunization Date Status Commen ts Source Name Name Hx influenza 2021-08-21 Completed [facility] vaccine-unspecified< 00:00:00 Herm kena sup>1</sup> Vital Signs Vital Name Observation Time Observation Value Comments Source Temperature Oral (F) 2021-11-25 21:43:00 98.6 F [facility] [place] Heart Rate 2021-11-25 21:43:00 [facility] Luis Systolic (mm Hg) 2021-11-25 21:43:00 Sebas rial Luis Diastolic (mm Hg) 2021-11-25 21:43:00 Mem orial [place] Systolic (mm Hg) 2021-06-13 20:05:00 Sebas rial [place] Diastolic (mm Hg) 2021-06-13 20:05:00 Mem orial Luis Heart Rate 2021-06-13 20:05:00 [facility] [place] Height 2021-06-13 20:05:00 167.64 cm [facility] Luis Weight 2021-06-13 20:05:00 [facility] Luis BMI Calculated 2021-06-13 20:05:00 Memori al [place] Systolic (mm Hg) 2021-05-23 20:10:00 Sebas rial Luis Diastolic (mm Hg) 2021-05-23 20:10:00 Mem orial Luis Heart Rate 2021-05-23 20:10:00 [facility] Luis Temperature Oral (F) 2021-05-23 20:10:00 98.4 F [facility] [place] Height 2021-05-23 20:10:00 167.64 cm [facility] Luis Weight 2021-05-23 20:10:00 [facility] [place] BMI Calculated 2021-05-23 20:10:00 Memori al [place] Systolic (mm Hg) 2020-11-28 15:09:00 Sebas rial [place] Diastolic (mm Hg) 2020-11-28 15:09:00 Mem orial [place] Heart Rate 2020-11-28 15:09:00 [facility] Luis Respitory Rate 2020-11-28 15:09:00 Memori al [place] Height 2020-11-28 15:09:00 167.64 cm [facility] Luis Weight 2020-11-28 15:09:00 [facility] [place] BMI Calculated 2020-11-28 15:09:00 Memori al [place] Systolic (mm Hg) 2020-03-07 14:29:00 Sebas rial [place] Diastolic (mm Hg) 2020-03-07 14:29:00 Mem orial Luis Systolic (mm Hg) 2020-03-07 13:55:00 Sebas rial [place] Diastolic (mm Hg) 2020-03-07 13:55:00 Mem orial Luis Heart Rate 2020-03-07 13:55:00 [facility] [place] Respitory Rate 2020-03-07 13:55:00 Memori al Luis Temperature Oral (F) 2020-03-07 13:55:00 97.7 F [facility] [place] Height 2020-03-07 13:55:00 167.64 cm [facility] Luis Weight 2020-03-07 13:55:00 [facility] [place] BMI Calculated 2020-03-07 13:55:00 Memori al Luis BMI Calculated 2019-04-17 19:56:00 Memori al Luis Weight 2019-04-17 19:56:00 [facility] Height 2019-04-17 19:56:00 168.91 cm [facility] [place] Heart Rate 2019-04-17 19:56:00 [facility] Temperature Oral (F) 2019-04-17 19:56:00 98.6 F [facility] [place] Systolic (mm Hg) 2019-04-17 19:56:00 Sebas rial [place] Diastolic (mm Hg) 2019-04-17 19:56:00 Mem orial Luis Systolic (mm Hg) 2016-08-07 15:58:00 Sebas rial Luis Diastolic (mm Hg) 2016-08-07 15:58:00 Mem orial [place] Respitory Rate 2016-08-07 15:58:00 Memori al [place] Heart Rate 2016-08-07 15:58:00 [facility] Temperature Oral (F) 2016-08-07 15:58:00 97.5 F [facility] Heart Rate 2016-08-07 12:20:00 [facility] Temperature Oral (F) 2016-08-07 12:20:00 98.0 F [facility] Systolic (mm Hg) 2016-08-07 12:20:00 [facility] [place] Diastolic (mm Hg) 2016-08-07 12:20:00 [facility] Respitory Rate 2016-08-07 12:20:00 [facility] Systolic (mm Hg) 2016-08-07 08:21:00 [facility] [place] Diastolic (mm Hg) 2016-08-07 08:21:00 [facility] Respitory Rate 2016-08-07 08:21:00 [facility] Heart Rate 2016-08-07 08:21:00 [facility] Temperature Oral (F) 2016-08-07 08:21:00 97.8 F [facility] Weight 2016-08-06 19:05:00 [facility] BMI Calculated 2016-08-06 19:05:00 [facility] Height 2016-08-06 19:05:00 175.26 cm [facility] BMI Calculated 2016-08-06 19:02:00 [facility] Weight 2016-08-06 19:02:00 [facility] Height 2016-08-06 19:02:00 165.1 cm [facility] Weight 2016-08-06 14:37:00 [facility] Procedures Procedure Date / Time Performed Performing Clinician [facility] e Diabetic foot examination 2020-11-28 15:40:10 Oh ann Smith Colonoscopy, flexible; 2018-07-01 05:00:00 Deng Smith with biopsy, single or multiple broken nose [facility] meniscal tear [facility] [facility] Encounters Start End Encounter Admission Attending Care Care Encounter Source Date/Time Date/Time Type Type Clinicians Facility Department ID 2022-05-26 2022-05-26 Outpatient MHIE MHIE [id number] [facility] 15:40:00 15:40:00 08 john Smith 2022-05-19 2022-05-19 Outpatient MHIE BLANCAIE [id number] [facility] 07:00:00 07:00:00 09 john Smith 2021-11-28 2021-11-28 Outpatient MHIE MHIE [id number] [facility] 07:00:00 07:00:00 10 john Smith 2021-11-25 2021-11-26 Outpatient [facility]Flavo [facility] 8 [id number] Memoria 21:40:00 05:59:59 r Medicine 06 john PittsBhatti Jeison peres 2021-09-11 2021-09-13 Phone nullFlavo [facility] 8515 [id number] Memoria 13:49:03 04:59:59 Message r Medicine 12 john PittsBhatti Jeison peres 2021-08-29 2021-08-31 Phone nullFlavo [facility] 8515 [id number] Memoria 14:36:07 04:59:59 Message r Medicine 11 l Magy Mchugh n 2021-08-28 2021-08-30 Phone nullFlavo [facility] 8515 [id number] Memoria 20:27:11 04:59:59 Message r Medicine 10 l Magy Mchugh n 2021-07-04 2021-07-05 Between nullFlavo [facility] 8515 [id number] Memoria 13:38:27 13:38:27 Visit r Medicine 14 l Magy Mchugh n 2021-07-03 2021-07-05 Phone nullFlavo [facility] 8515 [id number] Memoria 19:25:00 04:59:59 Message r Medicine 09 l Magy Mchugh n 2021-06-16 2021-06-17 Between nullFlavo [facility] 8515 [id number] Memoria 13:33:46 13:33:46 Visit r Medicine 12 l Bhatticam Mchugh n 2021-06-13 2021-06-14 Outpatient nullFlavo [facility] 8 [id number] [facility] 20:00:00 04:59:59 r Medicine 07 l Magy Mchugh n 2021-05-23 2021-05-24 Outpatient nullFlavo [facility] 8 [id number] [facility] 20:20:00 04:59:59 r Medicine 05 l Magy Mchugh n 2021-05-13 2021-05-15 Phone nullFlavo [facility] 8515 [id number] Memoria 15:26:09 04:59:59 Message r Medicine 08 l Bhatticam Mchugh n 2021-03-26 2021-03-26 Ambulatory nullFlavo [facility] 8 [id number] Memoria 20:20:00 20:20:00 Pre-Reg r Medicine 04 l Bhatticam Mchugh n 2020-12-09 2020-12-11 Phone nullFlavo [facility] 8515 [id number] Memoria 21:06:59 05:59:59 Message r Medicine 07 l Bhatticam Mchugh n 2020-11-28 2020-11-29 Outpatient nullFlavo [facility] 8 [id number] Memoria 15:00:00 05:59:59 r Medicine 03 l Bhatti Jeison n 2020-10-17 2020-10-19 Phone nullFlavo [facility] 8515 [id number] Memoria 15:11:36 05:59:59 Message r Medicine 06 john Mchugh larisa 2020-10-14 2020-10-15 Outpatient nullFlavo [facility] 8 [id number] [facility]oria 21:00:00 05:59:59 r Medicine 02 john Mchugh larisa 2020-10-11 2020-10-13 Phone nullFlavo [facility] 8515 [id number] Memoria 17:16:25 05:59:59 Message r Medicine 05 john Mchugh larisa 2020-04-30 2020-05-02 Phone nullFlavo [place] [id number] Memoria 18:42:05 04:59:59 Message r Medicine 04 john Mchugh larisa 2020-04-25 2020-04-27 Phone nullFlavo [place] [id number] Memoria 16:37:34 04:59:59 Message r Medicine 03 john Mchugh larisa 2020-04-25 2020-04-27 Phone nullFlavo [place] [id number] Memoria 16:32:01 04:59:59 Message r Medicine 02 john Mchugh larisa 2020-04-08 2020-04-10 Phone nullFlavo [place] [id number] Memoria 15:54:35 04:59:59 Message r Medicine 01 john Mchugh larisa 2020-03-12 2020-03-13 Between nullFlavo [place] [id number] Memoria 13:56:14 13:56:14 Visit r Medicine 03 john Magy Mchugh larisa 2020-03-07 2020-03-08 Outpatient nullFlavo [facility] 8 [id number] Memoria 14:00:00 04:59:59 r Medicine 01 l Magy Mchugh larisa 2020-02-01 2020-02-03 Phone nullFlavo [facility] 8515 [id number] Memoria 13:25:13 04:59:59 Message r Medicine 00 john Magy Mchugh larisa 2019-04-17 2019-04-18 Outpatient nullFlavo [facility] 8 [id number] Memoria 20:30:00 04:59:59 r Medicine 00 john Magy Balchris peres 2016-08-06 2016-08-07 Observatio nullFlavo [place] [id number] Memoria 14:28:00 17:45:00 n r [place] 01 l [place] Aaliyah nn Results Test Description Test Time Test Comments Results Result Comments Source LIPIDS 2021-06-13 20:53:00 Test Item Value Reference Range Interpretation Comme nts Chol (test code = Chol) 163 [facility]BqqfnwuEQUFVL1599-19-47 20:53:00 Test Item Value Reference Range Interpretation Comments HDL (test code = HDL) 48 [facility] TexasPlafmeqEAUUPK3278-36-31 20:53:00 Test Item Value Reference Range Interpretation Comments Trig (test code = Trig) 206 [facility]UaootdcVWRMAH4177-28-12 20:53:00 Test Item Value Reference Range Interpretation Comments LDL (Calculated) (test code = LDL 85 (Calculated)) [facility] TexasLypmotvFJRTVM6114-40-92 20:53:00 Test Item Value Reference Range Interpretation Comments CHD Risk (test code = CHD Risk) 3.4 [facility]IafhdduAJZDCA1179-65-79 20:53:00 Test Item Value Reference Range Interpretation Comments Non HDL Chol (test code = Non HDL Chol) 115 [facility] FJEZPYQMQ0197-32-54 20:53:00 Test Item Value Reference Range Interpretation Comments Hgb A1C (test code = Hgb A1C) 7.3 [facility] [id number] 20:53:00 Test Item Value Reference Range Interpretation Comments UA Color (test code = UA Color) YELLOW [facility] [id number] 20:53:00 Test Item Value Reference Range Interpretation Comments UA Turbidity (test code = UA Turbidity) CLEAR [facility] AND [id number] 20:53:00 Test Item Value Reference Range Interpretation Comments UA Spec Grav (test code = UA Spec 1.006 1 1.001-1.035 Grav) [facility] [id number] 20:53:00 Test Item Value Reference Range Interpretation Comments UA pH (test code = UA pH) 6.5 1 5.0-8.0 [facility] [id number] 20:53:00 Test Item Value Reference Range Interpretation Comments UA Glucose (test code = UA Glucose) NEGATIVE [facility] [id number] 20:53:00 Test Item Value Reference Range Interpretation Comments UA Bili (test code = UA Bili) NEGATIVE [facility] [id number] 20:53:00 Test Item Value Reference Range Interpretation Comments UA Ketones (test code = UA Ketones) NEGATIVE [facility] AND [id number] 20:53:00 Test Item Value Reference Range Interpretation Comments UA Blood (test code = UA Blood) NEGATIVE [facility] AND [id number] 20:53:00 Test Item Value Reference Range Interpretation Comments UA Protein (test code = UA Protein) NEGATIVE [facility] AND [id number] 20:53:00 Test Item Value Reference Range Interpretation Comments UA Nitrite (test code = UA Nitrite) NEGATIVE [facility] AND [id number] 20:53:00 Test Item Value Reference Range Interpretation Comments UA Leuk Est (test code = UA Leuk NEGATIVE Est) [facility] AND [id number] 20:53:00 Test Item Value Reference Range Interpretation Comments UA WBC (test code = UA WBC) NONE SEEN [facility] AND [id number] 20:53:00 Test Item Value Reference Range Interpretation Comments UA RBC (test code = UA RBC) NONE SEEN [facility] AND [id number] 20:53:00 Test Item Value Reference Range Interpretation Comments UA Sq Epi (test code = UA Sq Epi) NONE SEEN [facility] AND [id number] 20:53:00 Test Item Value Reference Range Interpretation Comments UA Bacteria (test code = UA NONE SEEN Bacteria) [facility] AND [id number] 20:53:00 Test Item Value Reference Range Interpretation Comments UA Hyal Cast (test code = UA Hyal NONE SEEN Cast) [facility] AND [id number] 20:53:00 Test Item Value Reference Range Interpretation Comments Result 3 (Urine Culture) (test SEE COMMENT code = Result 3 (Urine Culture)) [facility]villeBvvlngaTQXOZD7559-13-00 14:27:00 Test Item Value Reference Range Interpretation Comments Non HDL Chol (test code = Non HDL Chol) 167 [facility] SWNEQFBRR4727-61-39 14:27:00 Test Item Value Reference Range Interpretation Comments Hgb A1C (test code = Hgb A1C) 6.9 [facility] [id number] 14:27:00 Test Item Value Reference Range Interpretation Comments PSA (test code = PSA) 1.2 [facility] [id number] 14:27:00 Test Item Value Reference Range Interpretation Comments U Alb (test code = U Alb) no gt [facility] [id number] 14:27:00 Test Item Value Reference Range Interpretation Comments U Microalb Comment (test code = U SEE COMMENT Microalb Comment) [facility] [id number] 14:27:00 Test Item Value Reference Range Interpretation Comments Glucose Lvl (test code = Glucose Lvl) 152 65-139 [facility] [id number] 14:27:00 Test Item Value Reference Range Interpretation Comments BUN (test code = BUN) 11 7-25 [facility] [id number] 14:27:00 Test Item Value Reference Range Interpretation Comments Creatinine Lvl (test code = Creatinine 0.89 0.70-1.33 Lvl) [facility] [id number] 14:27:00 Test Item Value Reference Range Interpretation Comments eGFR NON-AFR. [place] (test code = 97 eGFR NON-AFR. [place]) [facility] [id number] 14:27:00 Test Item Value Reference Range Interpretation Comments eGFR (test code = eGFR 112 ) [facility] [id number] 14:27:00 Test Item Value Reference Range Interpretation Comments B/C Ratio (test code = B/C NOT APPLICABLE 622 Ratio) [facility] [id number] 14:27:00 Test Item Value Reference Range Interpretation Comments Sodium Lvl (test code = Sodium Lvl) 135 135-146 [facility] [id number] 14:27:00 Test Item Value Reference Range Interpretation Comments Potassium Lvl (test code = Potassium 4.2 3.5-5.3 Lvl) [facility] [id number] 14:27:00 Test Item Value Reference Range Interpretation Comments Chloride Lvl (test code = Chloride Lvl) 99 98-110 [facility] [id number] 14:27:00 Test Item Value Reference Range Interpretation Comments CO2 (test code = CO2) 27 20-32 [facility] [id number] 14:27:00 Test Item Value Reference Range Interpretation Comments Calcium Lvl (test code = Calcium Lvl) 9.7 8.6-10.3 [place] [address]-04-30 14:27:00 Test Item Value Reference Range Interpretation Comments Total Protein (test code = Total 7.4 6.1-8.1 Protein) [place] 836740-04-30 14:27:00 Test Item Value Reference Range Interpretation Comments Albumin Lvl (test code = Albumin Lvl) 4.5 3.6-5.1 [place] [address]-04-30 14:27:00 Test Item Value Reference Range Interpretation Comments Globulin (test code = Globulin) 2.9 1.9-3.7 [place] [address]-04-30 14:27:00 Test Item Value Reference Range Interpretation Comments A/G Ratio (test code = A/G Ratio) 1.6 1.0-2.5 [place] [address]-04-30 14:27:00 Test Item Value Reference Range Interpretation Comments Bili Total (test code = Bili Total) 0.7 0.2-1.2 [place] 836740-04-30 14:27:00 Test Item Value Reference Range Interpretation Comments Alk Phos (test code = Alk Phos) 66 35-144 [place] 836740-04-30 14:27:00 Test Item Value Reference Range Interpretation Comments ASPARTATE TRANSAMINASE (test code = 19 10-35 ASPARTATE TRANSAMINASE) [place] [id number] 14:27:00 Test Item Value Reference Range Interpretation Comments ALANINE AMINOTRANSFERASE (test code = 24 9-46 ALANINE AMINOTRANSFERASE) [place] [address]-04-30 14:27:00 Test Item Value Reference Range Interpretation Comments WBC X 10x3 (test code = WBC X 10x3) 4.6 3.8-10.8 [place] [address]-04-30 14:27:00 Test Item Value Reference Range Interpretation Comments RBC X 10x6 (test code = RBC X 10x6) 4.61 4.20-5.80 [place] [address]-04-30 14:27:00 Test Item Value Reference Range Interpretation Comments Hgb (test code = Hgb) 14.6 13.2-17.1 [place] [address]-04-30 14:27:00 Test Item Value Reference Range Interpretation Comments Hct (test code = Hct) 42.3 38.5-50.[address]04-30 14:27:00 Test Item Value Reference Range Interpretation Comments MCV (test code = MCV) 91.8 80.0-100.0 [facility] CenterPlnepbxRDUMCPWHUQ7300-31-45 14:27:00 Test Item Value Reference Range Interpretation Comments MCH (test code = MCH) 31.7 pg 27.0-33.0 [facility] CenterIyuoureZEQCAHEOLP8242-48-24 14:27:00 Test Item Value Reference Range Interpretation Comments MCHC (test code = MCHC) 34.5 32.0-36.0 [facility] CenterObnzwqbXPFPSRVXUK6883-16-46 14:27:00 Test Item Value Reference Range Interpretation Comments RDW (test code = RDW) 12.5 11.0-15.0 [facility] CenterCyqpqxhXHEERZSLGT6919-89-34 14:27:00 Test Item Value Reference Range Interpretation Comments Platelet (test code = Platelet) 189 140-400 [facility] CenterGtltedaQGVIQYWUTA2933-58-70 14:27:00 Test Item Value Reference Range Interpretation Comments MPV (test code = MPV) 10.1 7.5-12.5 [facility] CenterGoatkvxSFNRPBGDIY3884-37-28 14:27:00 Test Item Value Reference Range Interpretation Comments Neutrophils # (test code = Neutrophils 3151 5007-6691 #) [facility] CenterWnbuplcLWUEJKCWPP0652-16-46 14:27:00 Test Item Value Reference Range Interpretation Comments Lymphocytes # (test code = Lymphocytes 291 014-5195 #) [facility] CenterEmaewacSZNVRMKBPQ9139-43-38 14:27:00 Test Item Value Reference Range Interpretation Comments Monocytes # (test code = Monocytes #) 396 200-950 [facility] CenterVpgofkbFFISOZXMQK1329-26-52 14:27:00 Test Item Value Reference Range Interpretation Comments Eosinophils # (test code = Eosinophils 92 15-500 #) [facility] CenterCylxdvqJJCGPYNGQI0692-81-25 14:27:00 Test Item Value Reference Range Interpretation Comments Basophils # (test code 32 See_Comment [Aut omated message] The = Basophils #) system which generated this result tra nsmitted reference range : <=200. The reference r rich was not used to int erpret this result as normal/abnormal . [facility] CenterHyjakgnHAPXGONIKJ8506-67-11 14:27:00 Test Item Value Reference Range Interpretation Comments Segs (test code = Segs) 68.5 [place] 699130-04-30 14:27:00 Test Item Value Reference Range Interpretation Comments Lymphocytes (test code = Lymphocytes) 20.2 [facility] CenterWeaivprTEIQQMVXAY9466-20-31 14:27:00 Test Item Value Reference Range Interpretation Comments Monocytes (test code = Monocytes) 8.6 [facility] CenterPvbiriuUCWAOWDQQF4769-46-57 14:27:00 Test Item Value Reference Range Interpretation Comments Eosinophils (test code = Eosinophils) 2.0 [facility] CenterJpyzziwKVBXTTLSLF2791-13-93 14:27:00 Test Item Value Reference Range Interpretation Comments Basophils (test code = Basophils) 0.7 [facility]miTMYTPQ8866-12-97 14:27:00 Test Item Value Reference Range Interpretation Comments Chol (test code = Chol) 235 [facility] HospitalZvimsyaHPPGXI9634-57-54 14:27:00 Test Item Value Reference Range Interpretation Comments HDL (test code = HDL) 68 [facility] HospitalGjjqqjjBVBPSL1735-59-86 14:27:00 Test Item Value Reference Range Interpretation Comments Trig (test code = Trig) 118 [facility] HospitalOwllrchVNHKNB0861-42-31 14:27:00 Test Item Value Reference Range Interpretation Comments LDL (Calculated) (test code = LDL 143 (Calculated)) [facility] HospitalMaycrthMXEMMH3329-42-48 14:27:00 Test Item Value Reference Range Interpretation Comments CHD Risk (test code = CHD Risk) 3.5 [facility] HospitalHrnrxdjTQPICQJMBZUE1631-56-25 08:17:00 Test Item Value Reference Range Interpretation Comments AGAP (test code = AGAP) 11.2 10.0-20.0 [facility] HospitalLjasnqkBHIMJOOVZMIS6084-59-24 08:17:00 Test Item Value Reference Range Interpretation Comments eGFR (test code = eGFR) 90 [facility] HospitalXrulymoQGKIPVNCWNAS5081-45-48 08:17:00 Test Item Value Reference Range Interpretation Comments BUN (test code = BUN) 11 7-22 [facility] HospitalFyuhibgZYZFOXEZEJKH7863-51-20 08:17:00 Test Item Value Reference Range Interpretation Comments Creatinine Lvl (test code = Creatinine 0.97 0.50-1.40 Lvl) [facility] HospitalMoffdmrEWRLWBWHBIOV6757-63-05 08:17:00 Test Item Value Reference Range Interpretation Comments Glucose Lvl (test code = Glucose Lvl) 180 70-99 [facility] HospitalVjyyunnOGKGEKUVQXBC4648-99-27 08:17:00 Test Item Value Reference Range Interpretation Comments Sodium Lvl (test code = Sodium Lvl) 135 135-145 [facility] HospitalBbjiugfGEDMIBZWRXEY1075-35-67 08:17:00 Test Item Value Reference Range Interpretation Comments Potassium Lvl (test code = Potassium 4.2 3.5-5.1 Lvl) [facility] HospitalMclbfsaMXYWULAYSIKN0623-02-59 08:17:00 Test Item Value Reference Range Interpretation Comments Chloride Lvl (test code = Chloride Lvl) 98 95-109 [facility] HospitalUojzfasGASYEGHNVCSW4522-87-81 08:17:00 Test Item Value Reference Range Interpretation Comments CO2 (test code = CO2) 30 24-32 [facility] HospitalDipdncxORJRIBTFKTEE9660-87-78 08:17:00 Test Item Value Reference Range Interpretation Comments Calcium Lvl (test code = Calcium Lvl) 8.9 8.5-10.5 [facility] CenterEookfhfOIDUMXAZWQ6522-87-55 08:17:00 Test Item Value Reference Range Interpretation Comments WBC (test code = WBC) 5.7 3.7-10.4 [facility] CenterLaubsogHXKCQDCEJH3157-57-87 08:17:00 Test Item Value Reference Range Interpretation Comments MCHC (test code = MCHC) 34.2 32.0-36.0 [facility] CenterXpcpwprJCQFWJTRDZ0950-45-55 08:17:00 Test Item Value Reference Range Interpretation Comments Hgb (test code = Hgb) 15.8 14.0-18.0 [facility] CenterYedabazFKMXFOOGSQ0824-30-01 08:17:00 Test Item Value Reference Range Interpretation Comments MCH (test code = MCH) 31.3 pg 27.0-31.0 [facility] CenterMwqjqpjBOPJTXNDHF5514-02-39 08:17:00 Test Item Value Reference Range Interpretation Comments Hct (test code = Hct) 46.2 42.0-54.0 [facility] CenterYwkzyijFOZILPXHLB8995-29-38 08:17:00 Test Item Value Reference Range Interpretation Comments RBC (test code = RBC) 5.05 4.70-6.10 [facility] CenterMhwyeroZQFQBRWFSJ4311-38-51 08:17:00 Test Item Value Reference Range Interpretation Comments MCV (test code = MCV) 91.5 80.0-94.0 [facility] CenterOkvbrzyVVPEJHEHJN0764-37-91 08:17:00 Test Item Value Reference Range Interpretation Comments Platelet (test code = Platelet) 202 133-450 [facility] CenterUmevkakCOXPZBMBOG3221-80-05 08:17:00 Test Item Value Reference Range Interpretation Comments RDW (test code = RDW) 13.0 11.5-14.5 [facility] CenterTcvbknlJGZVBZKVMJ8835-99-93 08:17:00 Test Item Value Reference Range Interpretation Comments MPV (test code = MPV) 8.2 7.4-10.4 [facility] CenterLkhftaxNVBRBNKJYG0787-44-53 08:17:00 Test Item Value Reference Range Interpretation Comments Eosinophils (test code = 1.7 See_Comment [A utomated message] The Eosinophils) system which ge nerated this result tra nsmitted reference range : <=4.0. The reference r rich was not used to int erpret this result as normal/abnormal . [facility] CenterDanxytnBKSFIOPZNF6860-02-49 08:17:00 Test Item Value Reference Range Interpretation Comments Segs-Bands # (test code = Segs-Bands #) 3.4 1.5-8.1 [facility] CenterEksqmpzIZTVXUDOTA2279-84-58 08:17:00 Test Item Value Reference Range Interpretation Comments Basophils (test code = 0.6 See_Comment [Aut omated message] The Basophils) system which ge nerated this result tra nsmitted reference range : <=1.0. The reference r rich was not used to int erpret this result as normal/abnormal . [facility] CenterHckvqtkKRGPUYHNCC2400-27-72 08:17:00 Test Item Value Reference Range Interpretation Comments Lymphocytes # (test code = Lymphocytes 1.5 1.0-5.5 #) [facility] CenterWvadljxUHBPSVIBMM6066-60-28 08:17:00 Test Item Value Reference Range Interpretation Comments Basophils # (test code 0.0 See_Comment [Aut omated message] The = Basophils #) system which generated this result tra nsmitted reference range : <=0.2. The reference r rich was not used to int erpret this result as normal/abnormal . [facility] CenterLnsidpoBUSZSKNSFO3569-00-98 08:17:00 Test Item Value Reference Range Interpretation Comments Segs (test code = Segs) 59.5 45.0-75.0 [facility] CenterCfpofxqPWERQBCGQN4415-62-28 08:17:00 Test Item Value Reference Range Interpretation Comments Monocytes (test code = Monocytes) 12.2 2.0-12.0 [facility]VlekfzeVOKHEVXHJU2287-97-01 08:17:00 Test Item Value Reference Range Interpretation Comments Lymphocytes (test code = Lymphocytes) 26.0 20.0-40.0 [facility]MnwnlnfBEELLYDUTL4508-05-27 08:17:00 Test Item Value Reference Range Interpretation Comments Eosinophils # (test code 0.1 See_Comment [A utomated message] The = Eosinophils #) system whic h generated this result tra nsmitted reference range : <=0.5. The reference r rich was not used to int erpret this result as normal/abnormal . [facility]villeEllcfbnYXZOJGQTAJ9394-90-59 08:17:00 Test Item Value Reference Range Interpretation Comments Monocytes # (test code 0.7 See_Comment [Aut omated message] The = Monocytes #) system which generated this result tra nsmitted reference range : <=0.8. The reference r rich was not used to int erpret this result as normal/abnormal . [facility]villeGpyluorMQBTZX7884-01-44 08:17:00 Test Item Value Reference Range Interpretation Comments LDL (Calculated) (test code = LDL 144 (Calculated)) [facility]villeLopvvixZZRZXM8650-85-53 08:17:00 Test Item Value Reference Range Interpretation Comments VLDL (test code = VLDL) 58 [facility]villeMxxzdmeDPLDZE8365-56-24 08:17:00 Test Item Value Reference Range Interpretation Comments Chol (test code = Chol) 252 [facility] TexasFgwflslBTBCAG6050-33-73 08:17:00 Test Item Value Reference Range Interpretation Comments HDL (test code = HDL) 50 [facility] TexasNrtlsnvUAFELS1067-17-90 08:17:00 Test Item Value Reference Range Interpretation Comments Trig (test code = Trig) 292 [facility]villeLqxeeunSTALDZ3407-59-46 08:17:00 Test Item Value Reference Range Interpretation Comments CHD Risk (test code = CHD Risk) 5.04 4.00-7.30 [facility] IUHPHVVTA6843-40-84 08:17:00 Test Item Value Reference Range Interpretation Comments Hgb A1C (test code = Hgb A1C) 8.2 [facility] TexasannCARDIAC FGOEDIV2335-35-98 00:19:00 Test Item Value Reference Range Interpretation Comments Total CK (test code = Total CK) 157 12-191 [facility]villeCARDIAC FYGPMRM8938-07-61 00:19:00 Test Item Value Reference Range Interpretation Comments CK-MB INDEX (test 2.0 See_Comment [Automate d message] The code = CK-MB INDEX) system w [employer] generated this result transmit piedad reference range : <=2.5. The reference range was not used to interpr et this result as amita l/abnormal. [facility] [employer]2016-09-30 00:19:00 Test Item Value Reference Range Interpretation Comments CK MB (test code = CK MB) 3.1 0.5-3.6 [facility] [employer]2016-09-30 00:19:00 Test Item Value Reference Range Interpretation Comments Troponin-I (test code no gt See_Comment [Auto mated message] The = Troponin-I) system which g enerated this result transmit piedad reference range : <=0.40. The reference r rich was not used to interpr et this result as amita l/abnormal. [employer]2016-09-29 19:51:00 Test Item Value Reference Range Interpretation Comments Total CK (test code = Total CK) 160 12-191 [facility] [employer]2016-09-29 19:51:00 Test Item Value Reference Range Interpretation Comments CK-MB INDEX (test 2.1 See_Comment [Automate d message] The code = CK-MB INDEX) system w [employer] generated this result transmit piedad reference range : <=2.5. The reference range was not used to interpr et this result as amita l/abnormal. [facility] [employer]2016-09-29 19:51:00 Test Item Value Reference Range Interpretation Comments CK MB (test code = CK MB) 3.3 0.5-3.6 [facility] [employer]2016-09-29 19:51:00 Test Item Value Reference Range Interpretation Comments Troponin-I (test code no gt See_Comment [Auto mated message] The = Troponin-I) system which g enerated this result transmit piedad reference range : <=0.40. The reference r rich was not used to interpr et this result as amita l/abnormal. [employer]2016-09-29 15:05:00 Test Item Value Reference Range Interpretation Comments CK MB Index (test 1.9 See_Comment [Automate d message] The code = CK MB Index) system w hich generated this result transmit piedad reference range : <=2.5. The reference range was not used to interpr et this result as amita l/abnormal. [employer] [id number] 15:05:00 Test Item Value Reference Range Interpretation Comments Total CK (test code = Total CK) 193 12-191 [facility] [employer] [id number] 15:05:00 Test Item Value Reference Range Interpretation Comments CK MB (test code = CK MB) 3.6 0.5-3.6 [facility] [employer] [id number] 15:05:00 Test Item Value Reference Range Interpretation Comments Troponin-I (test code no gt See_Comment [Auto mated message] The = Troponin-I) system which g enerated this result transmit piedad reference range : <=0.40. The reference r rich was not used to interpr et this result as amita l/abnormal. [employer]2016-09-29 15:05:00 Test Item Value Reference Range Interpretation Comments BNP (test code = BNP) 18 [employer] [id number] 15:05:00 Test Item Value Reference Range Interpretation Comments eGFR (test code = eGFR) 92 [facility] [employer] [id number] 15:05:00 Test Item Value Reference Range Interpretation Comments Globulin (test code = Globulin) 3.8 2.7-4.2 [employer] [id number] 15:05:00 Test Item Value Reference Range Interpretation Comments B/C Ratio (test code = B/C Ratio) 10 6-25 [employer] [id number] 15:05:00 Test Item Value Reference Range Interpretation Comments A/G Ratio (test code = A/G Ratio) 1.1 0.7-1.6 [employer] [id number] 15:05:00 Test Item Value Reference Range Interpretation Comments ALT (test code = ALT) 27 See_Comment [Auto mated message] The system which ge nerated this result transmit piedad reference range : <=65. The reference range was not used to interpr et this result as amita l/abnormal. [employer]2016-09-29 15:05:00 Test Item Value Reference Range Interpretation Comments Alk Phos (test code = Alk Phos) 86 39-136 [facility]2016-09-29 15:05:00 Test Item Value Reference Range Interpretation Comments AST (test code = AST) 17 See_Comment [Auto mated message] The system which ge nerated this result transmit piedad reference range : <=37. The reference range was not used to interpr et this result as amita l/abnormal. [facility]2016-09-29 15:05:00 Test Item Value Reference Range Interpretation Comments Albumin Lvl (test code = Albumin Lvl) 4.3 3.5-5.0 [facility]2016-09-29 15:05:00 Test Item Value Reference Range Interpretation Comments Total Protein (test code = Total 8.1 6.4-8.4 Protein) [facility]2016-09-29 15:05:00 Test Item Value Reference Range Interpretation Comments AGAP (test code = AGAP) 13.9 10.0-20.0 [facility]2016-09-29 15:05:00 Test Item Value Reference Range Interpretation Comments Bili Total (test code = Bili Total) 1.0 0.2-1.3 [facility]2016-09-29 15:05:00 Test Item Value Reference Range Interpretation Comments CO2 (test code = CO2) 26 24-32 [facility]2016-09-29 15:05:00 Test Item Value Reference Range Interpretation Comments Calcium Lvl (test code = Calcium Lvl) 8.8 8.5-10.5 [facility]2016-09-29 15:05:00 Test Item Value Reference Range Interpretation Comments Sodium Lvl (test code = Sodium Lvl) 128 135-145 [facility]2016-09-29 15:05:00 Test Item Value Reference Range Interpretation Comments Chloride Lvl (test code = Chloride Lvl) 92 95-109 [facility]2016-09-29 15:05:00 Test Item Value Reference Range Interpretation Comments Potassium Lvl (test code = Potassium 3.9 3.5-5.1 Lvl) [facility]2016-09-29 15:05:00 Test Item Value Reference Range Interpretation Comments Creatinine Lvl (test code = Creatinine 0.96 0.50-1.40 Lvl) [facility]2016-09-29 15:05:00 Test Item Value Reference Range Interpretation Comments BUN (test code = BUN) 10 7-22 [facility]2016-09-29 15:05:00 Test Item Value Reference Range Interpretation Comments Glucose Lvl (test code = Glucose Lvl) 245 70-99 [facility] C[id number] 15:05:00 Test Item Value Reference Range Interpretation Comments Monocytes (test code = Monocytes) 5.0 2.0-12.0 [facility] [id number] 15:05:00 Test Item Value Reference Range Interpretation Comments Segs (test code = Segs) 84.4 45.0-75.0 [facility] [id number] 15:05:00 Test Item Value Reference Range Interpretation Comments Basophils (test code = 0.0 See_Comment [Aut omated message] The Basophils) system which ge nerated this result tra nsmitted reference range : <=1.0. The reference r rich was not used to int erpret this result as normal/abnormal . [facility] [id number] 15:05:00 Test Item Value Reference Range Interpretation Comments Eosinophils (test code = 0.6 See_Comment [A utomated message] The Eosinophils) system which ge nerated this result tra nsmitted reference range : <=4.0. The reference r rich was not used to int erpret this result as normal/abnormal . [facility] [id number] 15:05:00 Test Item Value Reference Range Interpretation Comments Segs-Bands # (test code = Segs-Bands #) 6.1 1.5-8.1 [facility] [id number] 15:05:00 Test Item Value Reference Range Interpretation Comments Basophils # (test code 0.0 See_Comment [Aut omated message] The = Basophils #) system which generated this result tra nsmitted reference range : <=0.2. The reference r rich was not used to int erpret this result as normal/abnormal . [facility] [id number] 15:05:00 Test Item Value Reference Range Interpretation Comments Eosinophils # (test code 0.0 See_Comment [A utomated message] The = Eosinophils #) system whic h generated this result tra nsmitted reference range : <=0.5. The reference r rich was not used to int erpret this result as normal/abnormal . [facility] [id number] 15:05:00 Test Item Value Reference Range Interpretation Comments Lymphocytes (test code = Lymphocytes) 10.0 20.0-40.0 [facility] [id number] 15:05:00 Test Item Value Reference Range Interpretation Comments Monocytes # (test code 0.4 See_Comment [Aut omated message] The = Monocytes #) system which generated this result tra nsmitted reference range : <=0.8. The reference r rich was not used to int erpret this result as normal/abnormal . [facility] [id number] 15:05:00 Test Item Value Reference Range Interpretation Comments Lymphocytes # (test code = Lymphocytes 0.7 1.0-5.5 #) [facility] C[id number] 15:05:00 Test Item Value Reference Range Interpretation Comments MPV (test code = MPV) 8.1 7.4-10.4 [facility] [id number] 15:05:00 Test Item Value Reference Range Interpretation Comments MCH (test code = MCH) 31.2 pg 27.0-31.0 [facility] CenterTezoqhpVBQRYENLLV1730-11-47 15:05:00 Test Item Value Reference Range Interpretation Comments Hct (test code = Hct) 49.8 42.0-54.0 [facility] [id number] 15:05:00 Test Item Value Reference Range Interpretation Comments MCHC (test code = MCHC) 34.3 32.0-36.0 [facility] Cent[id number] 15:05:00 Test Item Value Reference Range Interpretation Comments Platelet (test code = Platelet) 214 133-450 [facility] CenterMbwvzpnERJEPAYSFO1306-16-04 15:05:00 Test Item Value Reference Range Interpretation Comments RDW (test code = RDW) 12.7 11.5-14.5 [facility] [id number] 15:05:00 Test Item Value Reference Range Interpretation Comments MCV (test code = MCV) 91.0 80.0-94.0 [facility] C[id number] 15:05:00 Test Item Value Reference Range Interpretation Comments RBC (test code = RBC) 5.47 4.70-6.10 [facility] [id number] 15:05:00 Test Item Value Reference Range Interpretation Comments WBC (test code = WBC) 7.2 3.7-10.4 [facility] [id number] 15:05:00 Test Item Value Reference Range Interpretation Comments Hgb (test code = Hgb) 17.1 14.0-18.0 [facility]
[2021-12-13 14:45] LABS: Absolute Lymphocytes (CBC) 1.2 K/uL (0.7-4.9); Hematocrit 41.5 % (39.6-49.0); Lymphocytes % 22.1 % (15.3-44.8); MPV 7.8 fL (7.6-11.3); RBC Red Blood Cell Count 4.64 M/uL (4.33-5.43)
[2021-12-13 15:10] LABS: BUN Blood Urea Nitrogen 18 mg/dL (7-18); Bicarbonate 27 mmol/L (21-32); Glucose Level 171 mg/dL (74-106); Sodium Level 135 mmol/L (136-145)
--- NOTE | 2021-12-13 15:36 | EDPHYS ---
Physician Documentation [facility] Name: Conner Bunn Age: 56 yrs Sex: Male : 1965 Arrival Date: 12/13/2021 Time: 12:29 Bed 7 Private MD: Markel Sommers ED Physician Sukumar Ferrari HPI: 12/13 13:18 This 56 yrs old Male presents to ER via Ambulatory with complaints of High Blood Sugar. kb 13:18 The patient or guardian reports hyperglycemia, that was potentially precipitated by kb eating. Onset: The symptoms/episode began/occurred just prior to arrival. Associated signs and symptoms: Pertinent positives: None. Current symptoms: In the emergency department the patient's symptoms are unchanged from the initial presentation. The patient has experienced similar episodes in the past, a few times. The patient has not recently seen a physician. 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 Denies any other symptoms. States he ate waffles with syrup this morning. Does not use insulin. Historical: - Allergies: 12:49 karamycin; jh5 12:49 PENICILLINS; jh5 - PMHx: 12:49 Diabetes - NIDDM; Hyperlipidemia; Hypertension; deaf; jh5 - Immunization history:: Adult Immunizations up to date. - Social history:: Smoking status: Patient denies any tobacco usage or history of. ROS: 13:18 Constitutional: Negative for fever, chills, and weight loss. kb 13:18 All other systems are negative. Exam: 13:18 Constitutional: This is a well developed, well nourished patient who is awake, alert, kb and in no acute distress. Head/Face: Normocephalic, atraumatic. ENT: Moist Mucous membranes Cardiovascular: Regular rate and rhythm with a normal S1 and S2. No gallops, murmurs, or rubs. No pulse deficits. Respiratory: Respirations even and unlabored. No increased work of breathing. Talking in full sentences Skin: Warm, dry with normal turgor. Normal color. MS/ Extremity: Pulses equal, no cyanosis. Neurovascular intact. Full, normal range of motion. Neuro: Awake and alert, GCS 15, oriented to person, place, time, and situation. Moves all extremities. Normal gait. Psych: Awake, alert, with orientation to person, place and time. Behavior, mood, and affect are within normal limits. Vital Signs: 12:46 BP 137 / 76; Pulse 78; Resp 18; Temp 97.7; Pulse Ox 100% ; Weight 77.56 kg; Height 5 jh5 ft. 6 in. (167.64 cm); 12:46 Body Mass Index 27.60 (77.56 kg, 167.64 cm) jh5 MDM: 12:49 Patient medically screened. kb 13:18 Data reviewed: vital signs, nurses notes. Data interpreted: Pulse oximetry: on room air kb is 100 %. Interpretation: normal. 15:35 Counseling: I had a detailed discussion with the patient and/or guardian regarding: the kb historical points, exam findings, and any diagnostic results supporting the discharge/admit diagnosis, lab results, the need for outpatient follow up, a family practitioner, to return to the emergency department if symptoms worsen or persist or if there are any questions or concerns that arise at home. 12/13 12:50 Order name: CBC with Diff; Complete Time: 14:49 kb 12/13 12:50 Order name: Basic Metabolic Panel; Complete Time: 15:35 kb 12/13 12:50 Order name: Acetone, Serum; Complete Time: 15:35 kb 12/13 12:50 Order name: IV Start; Complete Time: 14:36 kb Administered Medications: No medications were administered Disposition: 15:57 Co-signature as Attending Physician, Sukumar Ferrari MD. rn Disposition Summary: 12/13/21 15:36 Discharge Ordered Location: Home kb Condition: Stable kb Diagnosis - Hyperglycemia, unspecified kb Followup: kb - With: Emergency Department - When: As needed - Reason: Worsening of condition Followup: kb - With: Private Physician - When: 2 - 3 days - Reason: Recheck today's complaints, Continuance of care, Re-evaluation by your physician Discharge Instructions: - Discharge Summary Sheet kb - Hyperglycemia, Gdih-zl-Rmlo kb Forms: - Medication Reconciliation Form kb - Thank You Letter kb - Antibiotic Education kb - Prescription Opioid Use kb Signatures: Dispatcher [employer] Shelley Snow, [employer]ING [employer]ER-C DAWN-Sukumar Duran MD MD rn Irma Christy RN RN 5
--- NOTE | 2021-12-13 15:36 | ER ---
Nurse's Notes [facility] Name: Conner Bunn Age: 56 yrs Sex: Male : 1965 Arrival Date: 12/13/2021 Time: 12:29 Bed 7 Private MD: Markel Sommers Diagnosis: Hyperglycemia, unspecified Presentation: 12/13 12:46 Chief complaint: Patient states: pt told his his glucose over 400; so they came [facility] into the ER. Chief complaint: Patient states: 378 at this time now. Coronavirus screen: Vaccine status: Patient reports being unvaccinated. Client denies travel out of the [place] in the last 14 days. Ebola Screen: Patient negative for fever greater than or equal to 101.5 degrees Fahrenheit, and additional compatible Ebola Virus Disease symptoms Patient denies exposure to infectious person. Patient denies travel to an Ebola-affected area in the 21 days before illness onset. Initial Sepsis Screen: Does the patient meet any 2 criteria? No. Patient's initial sepsis screen is negative. Does the patient have a suspected source of infection? No. Patient's initial sepsis screen is negative. Risk Assessment: Do you want to hurt yourself or someone else? Patient reports no desire to harm self or others. Onset of symptoms was December 13, 2021. 12:46 Method Of Arrival: Ambulatory [facility] 12:46 Acuity: WEI 3 jh5 Triage Assessment: 12:49 General: Appears in no apparent distress. slender, well groomed, well developed, [facility] Behavior is calm, cooperative, appropriate for age. Pain: Denies pain. Historical: - Allergies: 12:49 karamycin; 5 12:49 PENICILLINS; jh5 - PMHx: 12:49 Diabetes - NIDDM; Hyperlipidemia; Hypertension; deaf; 5 - Immunization history:: Adult Immunizations up to date. - Social history:: Smoking status: Patient denies any tobacco usage or history of. Screenin:35 Abuse screen: Denies threats or abuse. Nutritional screening: No deficits noted. [facility] Tuberculosis screening: No symptoms or risk factors identified. Fall Risk None identified. Assessment: 14:35 General: Appears in no apparent distress. Behavior is calm, cooperative. Pain: Denies [facility] pain. Vital Signs: 12:46 BP 137 / 76; Pulse 78; Resp 18; Temp 97.7; Pulse Ox 100% ; Weight 77.56 kg; Height 5 [facility] ft. 6 in. (167.64 cm); 12:46 Body Mass Index 27.60 (77.56 kg, 167.64 cm) [facility] ED Course: 12: Patient arrived in ED. as 12:29 Markel Sommers MD is Private Physician. as 12:49 Shelley Hatfield FNP-C is [facility]. kb 12:49 Sukumar Ferrari MD is Attending Physician. kb 12:49 Triage completed. 5 12:49 Arm band placed on right wrist. 5 14:34 Kayy Wakefield, RN is Primary Nurse. 6 14:35 Bed in low position. Call light in reach. Side rails up X 1. Adult w/ patient. jh6 14:35 Inserted saline lock: 20 gauge in left forearm, using aseptic technique. Blood 6 collected. 15:51 No provider procedures requiring assistance completed. IV discontinued, intact, jd3 bleeding controlled, No redness/swelling at site. Pressure dressing applied. Administered Medications: No medications were administered Outcome: 15:36 Discharge ordered by MD. kb 15:51 Discharged to home ambulatory, with family. jd3 15:51 Condition: stable 15:51 Discharge instructions given to patient, family, Instructed on discharge instructions, follow up and referral plans. Demonstrated understanding of instructions, follow-up care. 15:52 Patient left the ED. jd3 Signatures: Shelley Hatfield FNP-C FNP-Ckb Martinez, Amelia as Davies, Jonathon, RN RN jd3 Irma Christy RN RN jh5 Kayy Wakefield, DAQUAN RN jh6
[2021-12-13 16:26] VITALS: BP 137/76; TEMP 97.7; O2SAT 100
== END 2021-12-13 15:52 | disposition home or self-care (01) ==
LOC: ER 12:28
DX: E11.65 Type 2 diabetes mellitus with hyperglycemia (principal); I10 Essential (primary) hypertension; Z88.0 Allergy status to penicillin
CPT/HCPCS: 36415; 80048; 82010; 85025; 99283

== ENCOUNTER 2024-12-18 09:35 | Emergency (ER) | payer OTHER ==
--- NOTE | 2024-12-18 11:14 | RAD REPORT ---
EXAMINATION: TWO VIEW CHEST XR CLINICAL INDICATION: fever;Cough TECHNIQUE: 2 views of the chest was performed. COMPARISON: No prior exam. FINDINGS: The lungs are well inflated and clear. The heart is normal in size. No displaced fractures evident. IMPRESSION: No acute or significant abnormalities.
[2024-12-18 11:32] LABS: SARS-CoV-2 Antigen CONTROL BLUE LINE VIS/BG OK; SARS-CoV-2 Antigen Rapid Res Negative (Negative)
--- NOTE | 2024-12-18 11:37 | EDPHYS ---
Physician Documentation [facility] Name: Conner Bunn Age: 59 yrs Sex: Male : 1965 Arrival Date: 12/18/2024 Time: 09:35 Bed 20 Private MD: ED Physician Sukumar Ferrari HPI: 12/18 10:03 This 59 yrs old Male presents to ER via Ambulatory with complaints of Flu Symptoms. rn 10:03 The patient or guardian reports cough, flu symptoms. Onset: The symptoms/episode rn began/occurred 2 day(s) ago. Severity of symptoms: At their worst the symptoms were mild, in the emergency department the symptoms are unchanged. Modifying factors: The symptoms are alleviated by nothing, the symptoms are aggravated by nothing. Associated signs and symptoms: Pertinent positives: rhinorrhea, sore throat, Pertinent negatives: chest pain. The patient has experienced similar episodes in the past. The patient has not recently seen a physician. Patient reports flulike symptoms for the last 2 days. Reports subjective fever and chills, myalgias, cough, congestion, sore throat. No chronic lung problems. No hemoptysis. Cough productive of clear sputum. Denies shortness of breath. No abdominal pain or vomiting or diarrhea.. Historical: - Allergies: 09:57 karamycin; iw 09:57 PENICILLINS; iw - PMHx: 09:57 Diabetes - NIDDM; Deaf; Hyperlipidemia; Hypertension; iw - Immunization history:: Adult Immunizations up to date. - Infectious Disease History:: Denies. - Family history:: not pertinent. - Hospitalizations: : No recent hospitalization is reported. - Social history:: Smoking status: Patient denies any tobacco usage or history of. ROS: 10:03 Constitutional: Positive for subjective fever and chills Eyes: Negative for injury, rn pain, redness, and discharge, ENT: Positive for congestion and sore throat Cardiovascular: Negative for chest pain, palpitations, and edema, Respiratory: Positive for cough, negative for shortness of breath Abdomen/GI: Negative for abdominal pain, nausea, vomiting, diarrhea, and constipation, MS/Extremity: Negative for injury and deformity, Skin: Negative for injury, rash, and discoloration, Neuro: Positive for generalized weakness and malaise Exam: 10:03 Constitutional: This is a well developed, well nourished patient who is awake, alert, rn and in no acute distress. Head/Face: Normocephalic, atraumatic. ENT: Mild pharyngeal erythema, no exudate, no stridor Neck: Nontender cervical lymphadenopathy. No meningismus. Cardiovascular: Regular rate and rhythm. No pulse deficits. Respiratory: No increased work of breathing, no retractions or nasal flaring. Vital Signs: 09:56 BP 110 / 68; Pulse 100; Resp 19; Temp 98.6; Pulse Ox 100% on R/A; iw MDM: 09:40 Medical Screening Exam initiated rn 11:36 Differential Diagnosis: Bronchitis Influenza Upper Respiratory Infection Pharyngitis rn Viral Syndrome Pneumonia. Data reviewed: vital signs, nurses notes, lab test result(s), radiologic studies, plain films, and as a result, I will discharge patient. Counseling: I had a detailed discussion with the patient and/or guardian regarding the historical points, exam findings, and any diagnostic results supporting the discharge/admit diagnosis, lab results, radiology results, the need for outpatient follow up, to return to the emergency department if symptoms worsen or persist or if there are any questions or concerns that arise at home. Special discussion: I discussed with the patient/guardian in detail that at this point there is no indication for admission to the hospital. It is understood, however, that if the symptoms persist or worsen the patient needs to return immediately for re-evaluation. 12/18 09:51 Order name: Flu; Complete Time: 11:35 rn 12/18 09:51 Order name: SARS-COV-2 Antigen Rapid; Complete Time: 11:34 rn 12/18 09:51 Order name: Strep rn 12/18 11:36 Order name: Throat Culture EDME 12/18 09:51 Order name: XRAY Chest Pa And Lat (2 Views); Complete Time: 11:15 rn Administered Medications: No medications were administered Disposition Summary: 12/18/24 11:37 Discharge Ordered Notes: Location: Home rn Problem: new rn Symptoms: have improved rn Condition: Stable rn Diagnosis - Cough rn Followup: rn - With: Private Physician - When: As needed - Reason: Recheck today's complaints, Re-evaluation by your physician Discharge Instructions: - Discharge Summary Sheet rn - Cough, Adult rn Forms: - Work release form iw - Medication Reconciliation Form rn - Antibiotic internal control consultant - Prescription Opioid Use rn - Patient Portal Instructions rn - Leadership Thank You Letter rn Prescriptions: - Zithromax Z-Sergio 250 mg Oral Tablet - take 1 tablet ORAL route as directed for 5 days Day 1 - take two (2) tablets rn one time. Day 2, 3, 4 , 5 take one (1) tablet once daily.; 6 tablet; Refills: 0, Product Selection Permitted Signatures: Dispatcher [employer] EDMS Maddy Roque RN RN iw Nieto, Roman, MD MD rn Peltier, Brian, RN RN bp Corrections: (The following items were deleted from the chart) 09: 09:52 Influenza Screen (A \T\ B)+BA.LAB.BRZ ordered. EDMS EDMS 09: 09:52 SARS-COV-2 Antigen Rapid+I.LAB.BRZ ordered. EDMS EDMS 09: 09:52 Group A Streptococcus Rapid Sc+BA.LAB.BRZ ordered. EDMS EDMS 09:52 09:52 Chest Pa And Lat (2 Views)+RAD.RAD.BRZ ordered. EDMS EDMS
--- NOTE | 2024-12-18 11:37 | ER ---
Nurse's Notes [facility] Name: Conner Bunn Age: 59 yrs Sex: Male : 1965 Arrival Date: 12/18/2024 Time: 09:35 Bed 20 Private MD: Diagnosis: Cough Presentation: 12/18 09:56 Chief complaint: Patient states: cough, congestion, sore throat. Coronavirus screen: iw Client presents with at least one sign or symptom that may indicate coronavirus-19. Ebola Screen: No symptoms or risks identified at this time. Initial Sepsis Screen: Does the patient meet any 2 criteria? No. Patient's initial sepsis screen is negative. Does the patient have a suspected source of infection? No. Patient's initial sepsis screen is negative. Risk Assessment: Do you want to hurt yourself or someone else? Patient reports no desire to harm self or others. 09:56 Method Of Arrival: Ambulatory iw 09:56 Acuity: WEI 4 iw Triage Assessment: 10:00 General: Appears in no apparent distress. Behavior is calm, cooperative, appropriate bp for age. Pain: Denies pain. EENT: No deficits noted. Neuro: No deficits noted. Cardiovascular: No deficits noted. Respiratory: No deficits noted. GI: No signs and/or symptoms were reported involving the gastrointestinal system. : No signs and/or symptoms were reported regarding the genitourinary system. Derm: No deficits noted. Musculoskeletal: No deficits noted. Historical: - Allergies: 09:57 karamycin; iw 09:57 PENICILLINS; iw - PMHx: 09:57 Diabetes - NIDDM; Deaf; Hyperlipidemia; Hypertension; iw - Immunization history:: Adult Immunizations up to date. - Infectious Disease History:: Denies. - Family history:: not pertinent. - Hospitalizations: : No recent hospitalization is reported. - Social history:: Smoking status: Patient denies any tobacco usage or history of. Screenin:00 [facility] ED Fall Risk Assessment (Adult) History of falling in the last 3 months, bp including since admission No falls in past 3 months (0 pts) Confusion or Disorientation No (0 pts) Intoxicated or Sedated No (0 pts) Impaired Gait No (0 pts) Mobility Assist Device Used No (0 pt) Altered Elimination No (0 pt) Score/Fall Risk Level 0 - 2 = Low Risk Oriented to surroundings. Abuse screen: Denies threats or abuse. Denies injuries from another. Nutritional screening: No deficits noted. Nutritional screening: No deficits noted. Assessment: 10:00 General: Appears in no apparent distress. comfortable, Behavior is calm, cooperative, bp appropriate for age. 11:57 Reassessment: Patient appears in no apparent distress at this time. Patient is alert, bp oriented x 3, equal unlabored respirations, skin warm/dry/pink. Vital Signs: 09:56 BP 110 / 68; Pulse 100; Resp 19; Temp 98.6; Pulse Ox 100% on R/A; iw ED Course: 09:38 Patient arrived in ED. al6 09:39 Sukumar Ferrari MD is Attending Physician. rn 09:57 Triage completed. iw 09:57 Arm band placed on. iw 10:00 Patient has correct armband on for positive identification. bp 10:05 COVID swab sent to lab. Flu and/or RSV swab sent to lab. Strep swab sent to lab. ty 10:05 Strep Sent. ty 10:05 SARS-COV-2 Antigen Rapid Sent. ty 10:05 Flu Sent. ty 10:35 Stan Mckeon, RN is Primary Nurse. bp 10:47 XRAY Chest Pa And Lat (2 Views) In Process Unspecified. EDMS 11:58 Provided Education on: NA. bp 11:58 No provider procedures requiring assistance completed. Patient did not have IV access bp during this emergency room visit. Administered Medications: No medications were administered Medication: 11:59 VIS not applicable for this client. bp Outcome: 11:37 Discharge ordered by . rn 11:58 Discharged to home ambulatory, with family, bp 11:58 Condition: stable 11:58 Discharge instructions given to patient, Instructed on discharge instructions, follow up and referral plans. medication usage, Demonstrated understanding of instructions, follow-up care, medications, Prescriptions given X 1, 11:59 Patient left the ED. bp Signatures: Dispatcher [employer] EDMS Maddy Roque RN RN Sukumar Ferrari MD MD rn Peltier, Brian, RN Liborio Cooper Alissa [id number]
[2024-12-18 12:07] VITALS: BP 110/68; TEMP 98.6; O2SAT 100
== END 2024-12-18 11:59 | disposition home or self-care (01) ==
LOC: ER 09:35
DX: R05.9 Cough, unspecified (principal); R07.0 Pain in throat; J34.89 Other specified disorders of nose and nasal sinuses; Z11.52 Encounter for screening for COVID-19
CPT/HCPCS: 36415; 71046; 87070; 87081; 87804; 87811; 99283